=== PATIENT | female | born 1960 | race Caucasian/White ===

== ENCOUNTER 2017-01-05 10:05 | Inpatient (IN) | payer MEDICAID, OTHER ==
--- NOTE | 2017-01-05 10:29 | ERNOTE ---
Dyspnea - General Presenting Symptoms: shortness of breath Time Seen by Provider: 01/05/17 10:08 Source: patient Exam Limitations: no limitations - Immun/Allergies/Home Medications Immunizations: IMMUNIZATION HX Immunizations Up to Date No History of Influenza Vaccine More Information Required Hx Pneumococcal Vaccination More Information Required Allergies/Adverse Reactions: Allergies penicillin G Allergy (Mild, Verified 01/05/17 14:13) rash Home Medications: HOME MEDICATIONS Albuterol Sulfate/Ipratropium [Duoneb 2.5-0.5MG/3ML Soln] 3 ml IH Q4H PRN [Last Taken Unknown] FLUoxetine HCL [Prozac] 40 mg PO DAILY 01/24/14 [Last Taken Unknown] Furosemide [Lasix] 80 mg PO DAILY 01/24/14 [Last Taken Unknown] Gabapentin 300 mg PO TID 01/24/14 [Last Taken Unknown] Lisinopril [Zestril] 2.5 mg PO DAILY 01/24/14 [Last Taken Unknown] Metoclopramide HCl [Reglan] 10 mg PO TID 01/24/14 [Last Taken Unknown] lamoTRIgine [Lamictal] 150 mg PO DAILY 01/24/14 [Last Taken Unknown] Acetaminophen [Tylenol] 650 mg PO BID 07/08/14 [Last Taken Unknown] Cholecalciferol (Vitamin D3) [Vitamin D3] 2,000 unit PO DAILY 07/08/14 [Last Taken 07/08/14] Cyanocobalamin [Vitamin B-12] 500 mcg PO DAILY 07/08/14 [Last Taken Unknown] Multivitamin [Multi-Vitamin Daily] 1 each PO DAILY 07/08/14 [Last Taken Unknown] Nystatin [Nystop] 1 appl TP QID 07/08/14 [Last Taken Unknown] Polyethylene Glycol 3350 [Miralax] 17 gm PO DAILY PRN 07/08/14 [Last Taken Unknown] buPROPion HCL [Wellbutrin Sr, Zyban] 150 mg PO BID 07/10/14 [Last Taken Unknown] Azithromycin [Zithromax] 250 mg PO DAILY #5 tablet 07/18/14 [Last Taken Unknown] Clobetasol Propionate [Temovate Emollient 0.05%] 1 appl TP BID #1 tube 07/18/14 [Last Taken Unknown] Levothyroxine Sodium [Synthroid] 150 mcg PO DAILY@0700 #30 tablet 07/18/14 [ Last Taken Unknown] Albuterol Sulfate/Ipratropium [Duoneb 2.5-0.5MG/3ML Soln] 3 ml IH QID 01/05/17 [ Last Taken Unknown] Ibuprofen [Motrin] 600 mg PO TID PRN 01/05/17 [Last Taken Unknown] Montelukast Sodium [Singulair] 10 mg PO DAILY 01/05/17 [Last Taken Unknown] Ranitidine HCl [Zantac] 300 mg PO DAILY 01/05/17 [Last Taken Unknown] - History of Present Illness Narrative: Patient has had increasing abdominal and leg swelling as well as shortness of breath over the last two weeks. She can barely make it from the living room to the kitchen as she gets so short of breath. This morning she was so weak that she had difficulty getting out of bed and eventually slid down and fell on her knees. She denies hitting her head, no other pain except the knees She has a history of COPD and CHF, 3liters of home O2, has home health come to her daily. It has been a while since she has had a CHF exacerbation, usually retains her fluid mainly in her abdomen Treatment [employer]: oxygen Initiating event: Denies: out of meds Frequency of episodes: Reports: occassional episodes Modifying Factors - (Improves): Reports: rest Modifying Factors (Worsens): Reports: activity Associated Symptoms-Dyspnea: Reports: denies symptoms, weakness. Denies: fever/ chills, sweating, chest pain/discomfort, palpitations, cough, wheezing Prior Treatment: Denies: recently seen, currently on antibiotics Review of Systems - Review of Systems Constitutional: Present: weakness - generalized. Absent: recent illness ENT: Absent: nose congestion, sore throat Respiratory: Present: shortness of breath. Absent: cough Cardiology: Absent: chest pain Gastrointestinal/Abdominal: Absent: nausea, vomiting, abdominal pain Genitourinary: Present: no symptoms reported Musculoskeletal: Present: See HPI Skin: Absent: rash - Patient's Past Medical History Patient History - Medical: Anemia, Chronic Pain, Diabetes Type 2 Insulin Dependent, Depression, Fibromyalgia, Hypothyroidism, Osteoarthritis Patient History - Cardiac/Respiratory: CHF, COPD Patient History - Surgical Procedures: - Social History Living Situations: home Does anyone smoke in the home?: No Smoking Status: Never smoker Alcohol Use: none Drug Use: none - Immunizations Immunizations Up to Date: No Hx Pneumococcal Vaccination: More Information Required to Determine History of Influenza Vaccine: More Information Required to Determine Physical Exam - Physical Exam General Appearance: Present: wd/wn, alert, no apparent distress, obese Head Exam: Present: normal inspection Ears, Nose, Throat: Present: normal pharynx Respiratory: Present: no respiratory distress, normal breath sounds, no accessory muscle use, crackles - on both bases Cardiovascular/Chest: Present: regular rate, rhythm, no murmur Gastrointestinal/Abdominal: Present: soft, other - large obese abdomen, significant fluid retention in lower abdomen with skin induration, no erythema, no significant tenderness Extremity Exam: Present: normal except - - echymosis over left patellar, pain on ROM exam, limited exam due to body habitus, pedal edema - +1, red lesion on left park: sharply demarkated (per home health nurse has been like this for years) Neurological Exam: Present: alert, oriented, normal mood/affect, no motor/ sensory deficits Skin Exam: Present: normal color, warm/dry ED Progress - Results and Orders Patient's Lab Results:: I have reviewed the patient's lab results. - Vital Signs Patient's Vital Signs:: I have reviewed the patient's vital signs. Vital Signs: Vital Signs 01/05/17 10:07 Temperature 36.7 C Pulse Rate 87 Respiratory 12 Rate Blood Pressure 133/72 O2 Sat by Pulse 85 L Oximetry - EKG EKG: NSR, RBBB - incomplete, other - T wave inversion inferior lead, first degree AV block EKG read: Interp. by me - X-Ray X-Ray #1 X-Ray: chest - cardiomegalie, increased vascular markings Interpretation: Reviewed by me X-Ray #2 X-Ray: knee - left: no acute findings, limited exam due to body habitus Interpretation: Reviewed by me X-Ray #3 X-Ray: knee - right:no acute findings, limited exam due to body habitus Interpretation: Reviewed by me - Progress/Reassessment Chief Complaint: Fall Progress Note-Subjective: 01/05/17 11:15 reviewed labs, PH normal, pCO2 at baseline compared to prior 01/05/17 12:01 es 09/20/17 12:01 discussed with Departure Clinical Impression: Acute exacerbation of CHF (congestive heart failure) Qualifiers: Congestive heart failure type: unspecified congestive heart failure type Qualified Code(s): I50.9 - Heart failure, unspecified - Departure Disposition: [facility] Condition: Stable
[2017-01-05 10:37] LABS: Hematocrit 39.9 % (37.0-47.0); Mean Cell Volume 90.7 fl (78-100); Mean Corpuscular Hemoglobin 27.3 pg (27-31); Mean Corpuscular Hgb Conc 30.1 g/dl (32-36); Mean Platelet Volume 8.7 fl (6.0-9.5); Platelet Count 194 K/mm3 (150-450); Red Cell Distribution Width 16.9 % (11.5-14.0); White Blood Count 6.8 K/mm3 (4.0-10.5)
[2017-01-05 11:20] LABS: Albumin * 2.6 gm/dl (3.4-5.0); Anion Gap 5.2 mmol/L (6.8-13.8); BUN/Creatinine Ratio 12.1 (9.0-21.6); Bilirubin, Total 0.5 mg/dL (0.0-1.1); Ca. Corrected For Albumin 9.1 mg/dL (8.4-10.2); Calcium * 8.3 mg/dL (7.9-10.9); Potassium 5.2 mmol/L (3.4-4.6); Total Protein 6.5 gm/dL (6.2-8.2); Troponin I 0.025 ng/ml (0.00-0.10)
[2017-01-05] MEDS ORDERED: CYCLOBENZAPRINE HCL 10 MG TABLET PO ONE (11:52)
[2017-01-05] MEDS ORDERED: oxyCODONE HCL/ACETAMINOPHEN 1 TAB TABLET PO ONE (11:52)
[2017-01-05] MEDS ORDERED: FUROSEMIDE 10 MG/ML VIAL IV ONE ×2 (12:01→17:00)
[2017-01-05] MEDS ORDERED: FUROSEMIDE 10 MG/ML VIAL ONE (12:26)
[2017-01-05] MEDS ORDERED: FLU VACC QS2017-18(6MOS UP)/PF 60 MCG/0.5 ML SYRINGE IM ONE (13:16)
--- NOTE | 2017-01-05 15:13 | HP ---
<Kristin Lozano - Last Filed: 01/06/17 06:59> Chief Complaint - Chief Complaint Date of Service: 01/05/17 Time of Service: 15:13 Chief Complaint: weakness, shortness of breath History of Present Illness: Stephanie is a 56 year old female patient with a PMH of diastolic CHF, COPD ( chronically on 3L O2 at all times), DM, HTN, HLD, hypothyroidism and morbid obesity who presented to the ER via EMS for severe weakness, fatigue and dyspnea. Patient states that she has gained a significant amount of "water weight" that she is unable to get out of bed and feels like stomach is bloated. Patient has history of diastolic CHF with significant diuresis after given IV diuretics in the hospital. Patient slide out of bed prior to coming into the hospital, fell and hit bilat knees. ER eval showed normal wbc and neutrophils. K+ 5.2, cr 0.91, blood gas with CO2 at 75.9 but ph 7.38, CO2 44 on bmp, cr 0.91, bnp 1418. cxr showed findings c/w vascular congestion and stable large cardiomegaly. patient desaturated to 87% on 3L with tachypnea in the ER and needed additional oxygen supplementation. Patient to be admitted for CHF exac, acute on chronic respiratory failure, weakness and fatigue. - Patient's Past Medical History Patient History - Medical: Anemia, Chronic Pain, Diabetes Type 2 Insulin Dependent, Depression, Fibromyalgia, Hypothyroidism, Osteoarthritis Patient History - Cardiac/Respiratory: CHF, COPD Patient History - Surgical Procedures: Patient History - Other: None LMP (females 10-50): Menopausal - Social History Living Situations: home Abuse History: No History of abuse Psych History: No pertinent hx Does anyone smoke in the home?: No Smoking Status: Former smoker Have you smoked in the past 12 months: No Alcohol Use: none Drug Use: none - Immunizations Immunizations Up to Date: No Hx Pneumococcal Vaccination: More Information Required to Determine History of Influenza Vaccine: More Information Required to Determine Review Of Systems (GEN) - Review of Systems Generalized/Overall Review: Present: Weakness, Malaise, Fatigue. Absent: Chills , Fever EENTM: Present: No Symptoms Reported Respiratory: Present: Cough, Shortness of Breath. Absent: Wheezing Cardiac: Present: Edema. Absent: Chest Pain, Palpitations, Syncope Abdominal: Present: Other - abdominal bloating. Absent: Nausea, Vomiting, Hematemesis Genitourinary: Present: No Symptoms Reported Musculoskeletal: Present: No Symptoms Reported Neurological: Present: No Symptoms Reported Skin: Present: Rash - left lower lateral leg - chronic. Endocrine: Present: No Symptoms Reported Misc: All systems neg except as marked Allergies/Adverse Reactions: Allergies Allergy/AdvReac Type Severity Reaction Status Date / Time penicillin G Allergy Mild rash Verified 01/05/17 14:13 Home Medications: HOME MEDICATIONS Albuterol Sulfate/Ipratropium [Duoneb 2.5-0.5MG/3ML Soln] 3 ml IH Q4H PRN [Last Taken Unknown] FLUoxetine HCL [Prozac] 40 mg PO DAILY 01/24/14 [Last Taken Unknown] Furosemide [Lasix] 80 mg PO DAILY 01/24/14 [Last Taken Unknown] Gabapentin 300 mg PO TID 01/24/14 [Last Taken Unknown] Lisinopril [Zestril] 2.5 mg PO DAILY 01/24/14 [Last Taken Unknown] Metoclopramide HCl [Reglan] 10 mg PO TID 01/24/14 [Last Taken Unknown] lamoTRIgine [Lamictal] 150 mg PO DAILY 01/24/14 [Last Taken Unknown] Acetaminophen [Tylenol] 650 mg PO BID 07/08/14 [Last Taken Unknown] Cholecalciferol (Vitamin D3) [Vitamin D3] 2,000 unit PO DAILY 07/08/14 [Last Taken 07/08/14] Cyanocobalamin [Vitamin B-12] 500 mcg PO DAILY 07/08/14 [Last Taken Unknown] Multivitamin [Multi-Vitamin Daily] 1 each PO DAILY 07/08/14 [Last Taken Unknown] Nystatin [Nystop] 1 appl TP QID 07/08/14 [Last Taken Unknown] Polyethylene Glycol 3350 [Miralax] 17 gm PO DAILY PRN 07/08/14 [Last Taken Unknown] buPROPion HCL [Wellbutrin Sr, Zyban] 150 mg PO BID 07/10/14 [Last Taken Unknown] Clobetasol Propionate [Temovate Emollient 0.05%] 1 appl TP BID #1 tube 07/18/14 [Last Taken Unknown] Levothyroxine Sodium [Synthroid] 150 mcg PO DAILY@0700 #30 tablet 07/18/14 [ Last Taken Unknown] Azithromycin 250 mg PO MOWEFR 01/05/17 [Last Taken Unknown] Codeine Phosphate/Guaifenesin [Guaifen-Codeine 200-20 mg/10Ml] 10 ml PO Q4H PRN 01/05/17 [Last Taken Unknown] Ibuprofen [Motrin] 800 mg PO TID PRN 01/05/17 [Last Taken Unknown] Insul NPH Hu Rec/Ins Rg Hu Rec [Novolin 70/30] See Protocol SQ 0700 01/05/17 [ Last Taken Unknown] Montelukast Sodium [Singulair] 10 mg PO DAILY 01/05/17 [Last Taken Unknown] Ranitidine HCl [Zantac] 300 mg PO DAILY 01/05/17 [Last Taken Unknown] Exam - Exam Vital Signs: Vital Signs - Last Taken Temp 36.9 C 01/05/17 14:50 Pulse 91 01/05/17 14:50 Resp 22 H 01/05/17 14:50 BP 117/75 01/05/17 14:50 Pulse Ox 94 01/05/17 14:50 Constitutional: Present: Alert, Oriented x3, Cooperative, No distress, Morbidly obese, Looks Older than stated age ENT Exam: Present: hearing grossly normal Eye Exam: bilateral eye: normal inspection Neck: Present: non-tender, supple Breasts: Present: Exam deferred Respiratory: Present: no accessory muscle use, crackles, No wheezing, other - tachypnea Cardiovascular/Chest: Present: regular rate, rhythm, no chest tenderness, JVD, edema - 3+ bilat lower extremity edema. Absent: tachycardia Peripheral Pulses: carotid (R): 2+, carotid (L): 2+, radial (R): 2+, radial (L) : 2+ Abdomen: Present: nontender, obese /Rectal: Present: Exam deferred Extremity: Present: lower extremity edema - 3+ bilat, other - left lower leg has large lateral red plaque present - patient indicates that this is a chronic skin condition. Skin Exam: Present: warm/dry, cool/dry, pallor Diagnostic Studies: Laboratory Results WBC 6.8 K/mm3 (4.0-10.5) 01/05/17 10:32 RBC 4.40 M/mm3 (4.2-5.4) 01/05/17 10:32 Hgb 12.0 gm/dL (12.5-16.0) L 01/05/17 10:32 Hct 39.9 % (37.0-47.0) 01/05/17 10:32 MCV 90.7 fl (78-100) 01/05/17 10:32 MCH 27.3 pg (27-31) 01/05/17 10:32 MCHC 30.1 g/dl (32-36) L 01/05/17 10:32 RDW 16.9 % (11.5-14.0) H 01/05/17 10:32 Plt Count 194 K/mm3 (150-450) 01/05/17 10:32 MPV 8.7 fl (6.0-9.5) 01/05/17 10:32 Immature Gran % (Auto) 0.60 % (0.001-0.429) H 01/05/17 10:32 Immature Gran # (Auto) 0.04 K/mm3 (0.000-0.0310) H 01/05/17 10:32 Neutrophils % 73.0 % (42-75.0) 01/05/17 10:32 Lymphocytes % 11.5 % (20-51) L 01/05/17 10:32 Monocytes % 12.3 % (0.0-9) H 01/05/17 10:32 Eosinophils % 2.3 % (0.0-3.0) 01/05/17 10:32 Basophils % 0.3 % (0.0-1.0) 01/05/17 10:32 Nucleated RBC % 0.0 k/mm3 (0-1) 01/05/17 10:32 Neutrophils # 5.0 K/mm3 (1.3-6.0) 01/05/17 10:32 Lymphocytes # 0.8 k/mm3 (1.5-3.5) L 01/05/17 10:32 Monocytes # 0.8 k/mm3 (0.0-1.0) 01/05/17 10:32 Eosinophils # 0.2 k/mm3 (0.0-0.7) 01/05/17 10:32 Absolute Basophils 0.0 k/mm3 (0.0-0.1) 01/05/17 10:32 pCO2 75.9 mmHg (32.0-45.0) H* 01/05/17 10:55 pO2 89.5 mmHg (83.0-108.0) 01/05/17 10:55 HCO3 43.4 mmol/L (21.0-28.0) H 01/05/17 10:55 Total CO2 45.7 mmol/L (19.0-24.0) H 01/05/17 10:55 Base Excess 14.7 mmol/L (-2.0-3.0) H 01/05/17 10:55 ABG pH 7.38 (7.35-7.45) 01/05/17 10:55 ABG O2 Sat (Measured) 96.2 % (94.0-98.0) 01/05/17 10:55 Sodium 137 mmol/L (132-142) 01/05/17 10:32 Plasma Sodium 138 mmol/L (130-142) 01/05/17 10:32 Potassium 5.2 mmol/L (3.4-4.6) H 01/05/17 10:32 Chloride 93 mmol/L (97-106) L 01/05/17 10:32 Carbon Dioxide 44.0 mmol/L (24-32.6) H 01/05/17 10:32 Anion Gap 5.2 mmol/L (6.8-13.8) L 01/05/17 10:32 BUN 11 mg/dL (3-23) 01/05/17 10:32 Creatinine 0.91 mg/dL (0.4-1.4) 01/05/17 10:32 Est GFR (Non-Af Amer) 67 mL/min (60-130) D 01/05/17 10:32 BUN/Creatinine Ratio 12.1 (9.0-21.6) 01/05/17 10:32 Random Glucose 139 mg/dL (70-110) H 01/05/17 10:32 Calcium 8.3 mg/dL (7.9-10.9) 01/05/17 10:32 Calcium Adj for Albumin 9.1 mg/dL (8.4-10.2) 01/05/17 10:32 Total Bilirubin 0.5 mg/dL (0.0-1.1) 01/05/17 10:32 AST 17 U/L (0-48) 01/05/17 10:32 ALT 22 U/L (19-67) 01/05/17 10:32 Alkaline Phosphatase 83 U/L (50-170) 01/05/17 10:32 Troponin I 0.025 ng/ml (0.00-0.10) 01/05/17 10:32 B-Natriuretic Peptide 1418 pg/mL (5-205) H 01/05/17 10:32 Total Protein 6.5 gm/dL (6.2-8.2) 01/05/17 10:32 Albumin 2.6 gm/dl (3.4-5.0) L 01/05/17 10:32 Assessment/Plan - Narrative Narrative: 56 year old female admitted with a CHF exac, acute on chronic respiratory failure with hypoxia and hypercapnia, weakness and fatigue. will check TSH and UA given weakness. lower extremities have a mild erythema to them that does not appears to be venous stasis, other options would be possible early cellulitis - however wbc/neutrophils are not elevated. will recheck labs in the am and watch patient closely. also check esr, crp and procalcitonin. For chf exac, patient was given 60 mg iv lasix in the er with approx 1000 diuresis afterwards. will order additional diuretics (60 mg iv lasix, 2.5 mg po zarolyxn and 100 mg spironlactone) 6 hours after the initial lasix dose. again , recheck labs in the am. daily weights and strict I&Os. chf teaching. hold off on an echo as they have proven to be extremely technically difficult in the past with little information gained as the patient does not tolerate them. wean O2 back to baseline when able. consult PT/OT for weakness and fatigue. - Assessment/Plan (1) CHF (congestive heart failure) Problem: Acute QualifierTitle: Congestive heart failure type: diastolic Congestive heart failure chronicity: acute on chronic Qualified Code(s): I50.33 - Acute on chronic diastolic (congestive) heart failure (2) Acute respiratory failure Problem: Acute QualifierTitle: Respiratory failure complication: hypoxia and hypercapnia Qualified Code(s): J96.01 - Acute respiratory failure with hypoxia; J96.02 - Acute respiratory failure with hypercapnia (3) Diabetes 1.5, managed as type 1 Problem: Chronic (4) Hyperlipidemia Problem: Chronic QualifierTitle: Hyperlipidemia type: unspecified Qualified Code(s): E78.5 - Hyperlipidemia, unspecified (5) Hypertension Problem: Chronic QualifierTitle: Hypertension type: essential hypertension Qualified Code( s): I10 - Essential (primary) hypertension (6) Hypothyroidism Problem: Chronic QualifierTitle: Hypothyroidism type: acquired Qualified Code(s): E03.9 - Hypothyroidism, unspecified (7) Morbid obesity Problem: Chronic (8) Obstructive sleep apnea Problem: Chronic (9) Pickwickian syndrome Problem: Chronic (10) Weakness generalized Problem: Acute (11) Fatigue Problem: Acute QualifierTitle: Fatigue type: unspecified Qualified Code(s): R53.83 - Other fatigue <Leo Adamson - Last Filed: 01/06/17 09:56> History of Present Illness: Diuresing well. I directly supervised all of our nurse practitioner hospitalist care for this patient. Immunizations: IMMUNIZATION HX Immunizations Up to Date No History of Influenza Vaccine More Information Required Hx Pneumococcal Vaccination More Information Required Exam - Exam Vital Signs: Vital Signs - Last Taken Temp 36.7 C 01/06/17 08:19 Pulse 79 01/06/17 09:35 Resp 20 01/06/17 08:19 BP 116/70 01/06/17 09:35 Pulse Ox 100 01/06/17 08:19 Diagnostic Studies: Abnormal Lab Results 01/05/17 01/05/17 01/05/17 Range/Units 15:26 15:30 15:30 Hgb (12.5-16.0) gm/dL MCHC (32-36) g/dl RDW (11.5-14.0) % Lymphocytes % (20-51) % Monocytes % (0.0-9) % Lymphocytes # (1.5-3.5) k/mm3 ESR 35 H (0-15) mm/hr Chloride (97-106) mmol/L Carbon Dioxide (24-32.6) mmol/L Anion Gap (6.8-13.8) mmol/L Random Glucose (70-110) mg/dL C-Reactive Prot, Quant 2.8 H (0.0-0.9) mg/dL Procalcitonin Less than 0.05 L (0.05-0.50) ng/mL Urine Blood (NEGATIVE) /ul Urine RBC (0-5) /hpf Urine Bacteria (NONE) Hyaline Casts (NONE) /LPF 01/05/17 01/06/17 01/06/17 Range/Units 17:00 06:07 06:26 Hgb 11.9 L (12.5-16.0) gm/dL MCHC 29.5 L (32-36) g/dl RDW 17.0 H (11.5-14.0) % Lymphocytes % 10.1 L (20-51) % Monocytes % 12.0 H (0.0-9) % Lymphocytes # 0.6 L (1.5-3.5) k/mm3 ESR (0-15) mm/hr Chloride 91 L (97-106) mmol/L Carbon Dioxide 53.9 H (24-32.6) mmol/L Anion Gap 1.8 L (6.8-13.8) mmol/L Random Glucose 220 H D (70-110) mg/dL C-Reactive Prot, Quant (0.0-0.9) mg/dL Procalcitonin (0.05-0.50) ng/mL Urine Blood 250 H (NEGATIVE) /ul Urine RBC 10-25 H (0-5) /hpf Urine Bacteria 1+ H (NONE) Hyaline Casts 0-5 H (NONE) /LPF Microbiology 01/05/17 17:00 Urine Culture - Preliminary Urine,Catheterized No Growth Laboratory Results WBC 5.8 K/mm3 (4.0-10.5) 01/06/17 06:26 RBC 4.41 M/mm3 (4.2-5.4) 01/06/17 06:26 Hgb 11.9 gm/dL (12.5-16.0) L 01/06/17 06:26 Hct 40.4 % (37.0-47.0) 01/06/17 06:26 MCV 91.6 fl (78-100) 01/06/17 06:26 MCH 27.0 pg (27-31) 01/06/17 06:26 MCHC 29.5 g/dl (32-36) L 01/06/17 06:26 RDW 17.0 % (11.5-14.0) H 01/06/17 06:26 Plt Count 170 K/mm3 (150-450) 01/06/17 06:26 MPV 9.4 fl (6.0-9.5) 01/06/17 06:26 Immature Gran % (Auto) 0.30 % (0.001-0.429) 01/06/17 06:26 Immature Gran # (Auto) 0.02 K/mm3 (0.000-0.0310) 01/06/17 06:26 Neutrophils % 74.9 % (42-75.0) 01/06/17 06:26 Lymphocytes % 10.1 % (20-51) L 01/06/17 06:26 Monocytes % 12.0 % (0.0-9) H 01/06/17 06:26 Eosinophils % 2.2 % (0.0-3.0) 01/06/17 06:26 Basophils % 0.5 % (0.0-1.0) 01/06/17 06:26 Nucleated RBC % 0.0 k/mm3 (0-1) 01/06/17 06:26 Neutrophils # 4.4 K/mm3 (1.3-6.0) 01/06/17 06:26 Lymphocytes # 0.6 k/mm3 (1.5-3.5) L 01/06/17 06:26 Monocytes # 0.7 k/mm3 (0.0-1.0) 01/06/17 06:26 Eosinophils # 0.1 k/mm3 (0.0-0.7) 01/06/17 06:26 Absolute Basophils 0.0 k/mm3 (0.0-0.1) 01/06/17 06:26 ESR 35 mm/hr (0-15) H 01/05/17 15:30 pCO2 75.9 mmHg (32.0-45.0) H* 01/05/17 10:55 pO2 89.5 mmHg (83.0-108.0) 01/05/17 10:55 HCO3 43.4 mmol/L (21.0-28.0) H 01/05/17 10:55 Total CO2 45.7 mmol/L (19.0-24.0) H 01/05/17 10:55 Base Excess 14.7 mmol/L (-2.0-3.0) H 01/05/17 10:55 ABG pH 7.38 (7.35-7.45) 01/05/17 10:55 ABG O2 Sat (Measured) 96.2 % (94.0-98.0) 01/05/17 10:55 Sodium 136 mmol/L (132-142) 01/06/17 06:07 Plasma Sodium 138 mmol/L (130-142) 01/06/17 06:07 Potassium 3.8 mmol/L (3.4-4.6) D 01/06/17 06:07 Chloride 91 mmol/L (97-106) L 01/06/17 06:07 Carbon Dioxide 53.9 mmol/L (24-32.6) H 01/06/17 06:07 Anion Gap 1.8 mmol/L (6.8-13.8) L 01/06/17 06:07 BUN 10 mg/dL (3-23) 01/06/17 06:07 Creatinine 0.95 mg/dL (0.4-1.4) 01/06/17 06:07 Est GFR (Non-Af Amer) 64 mL/min (60-130) 01/06/17 06:07 BUN/Creatinine Ratio 10.5 (9.0-21.6) 01/06/17 06:07 Random Glucose 220 mg/dL (70-110) H D 01/06/17 06:07 Calcium 8.4 mg/dL (7.9-10.9) 01/06/17 06:07 Calcium Adj for Albumin 9.1 mg/dL (8.4-10.2) 01/05/17 10:32 Total Bilirubin 0.5 mg/dL (0.0-1.1) 01/05/17 10:32 AST 17 U/L (0-48) 01/05/17 10:32 ALT 22 U/L (19-67) 01/05/17 10:32 Alkaline Phosphatase 83 U/L (50-170) 01/05/17 10:32 Troponin I 0.025 ng/ml (0.00-0.10) 01/05/17 10:32 C-Reactive Prot, Quant 2.8 mg/dL (0.0-0.9) H 01/05/17 15:26 B-Natriuretic Peptide 1418 pg/mL (5-205) H 01/05/17 10:32 Total Protein 6.5 gm/dL (6.2-8.2) 01/05/17 10:32 Albumin 2.6 gm/dl (3.4-5.0) L 01/05/17 10:32 Procalcitonin Less than 0.05 ng/mL (0.05-0.50) L 01/05/17 15:30 TSH 3.543 uIU/mL (0.358-3.74) 01/05/17 15:26 Urine Color Yellow 01/05/17 17:00 Urine Appearance Cloudy 01/05/17 17:00 Urine pH 5.5 pH (5.0-7.0) 01/05/17 17:00 Ur Specific [place] 1.020 SP.GR. (1.005-1.010) 01/05/17 17:00 Urine Protein Negative mg/dL (NEGATIVE) 01/05/17 17:00 Urine Glucose (UA) Negative mg/dL (NEGATIVE) 01/05/17 17:00 Urine Ketones Negative mg/dL (NEGATIVE) 01/05/17 17:00 Urine Blood 250 /ul (NEGATIVE) H 01/05/17 17:00 Urine Nitrate Negative (NEGATIVE) 01/05/17 17:00 Urine Bilirubin Negative mg/dl (NEGATIVE) 01/05/17 17:00 Urine Urobilinogen Normal EU/dl (NORMAL) 01/05/17 17:00 Ur Leukocyte Esterase Negative /ul (NEGATIVE) 01/05/17 17:00 Urine RBC 10-25 /hpf (0-5) H 01/05/17 17:00 Urine WBC 0-5 /hpf (0-5) 01/05/17 17:00 Ur Epithelial Cells 0-5 /hpf (0-5) 01/05/17 17:00 Urine Bacteria 1+ (NONE) H 01/05/17 17:00 Hyaline Casts 0-5 /LPF (NONE) H 01/05/17 17:00 Urine Culture Comments Culture to follow 01/05/17 17:00
[2017-01-05 15:57] LABS: CRP 2.8 mg/dL (0.0-0.9); TSH * 3.543 uIU/mL (0.358-3.74)
[2017-01-05] MEDS: NYSTATIN 15 APPL BTL TP SCH ×2 (16:40→20:29)
[2017-01-05] MEDS: ENOXAPARIN SODIUM 40 MG/0.4 ML SYRG SC SCH (16:40)
[2017-01-05] MEDS: METOCLOPRAMIDE HCL 10 MG TABLET PO SCH (16:41)
[2017-01-05] MEDS ORDERED: SPIRONOLACTONE 100 MG TABLET PO ONE (17:00)
[2017-01-05] MEDS ORDERED: METOLAZONE 5 MG TABLET PO ONE (17:00)
[2017-01-05 17:08] LABS: Urine Bilirubin Negative (NEGATIVE); Urine Blood 250 /ul (NEGATIVE); Urine Ketone Negative (NEGATIVE); Urine Nitrite Negative (NEGATIVE); Urine Protein Negative (NEGATIVE); Urine Urobilinogen Normal (NORMAL); Urine pH 5.5 pH (5.0-7.0)
[2017-01-05 17:41] LABS: Urine Appearance Cloudy; Urine Color Yellow
[2017-01-05 17:42] LABS: Urine Bacteria 1+; Urine Hyaline Cast 0-5 /LPF; Urine WBC 0-5 /hpf (0-5)
[2017-01-05] MEDS: ALBUTEROL SULFATE/IPRATROPIUM 3 ML NEBU IH SCH (18:22)
[2017-01-05] MEDS: ACETAMINOPHEN 325 MG TABLET PO SCH (20:25)
[2017-01-05] MEDS: GABAPENTIN 300 MG CAPSULE PO SCH (20:25)
[2017-01-05] MEDS: MONTELUKAST SODIUM 10 MG TABLET PO SCH (20:25)
[2017-01-05] MEDS: buPROPion HCL 150 MG TABLET.SA PO SCH (20:26)
[2017-01-05] MEDS: CLOBETASOL PROPIONATE 15 APPL TUBE TP SCH (20:29)
[2017-01-06 06:28] LABS: Hematocrit 40.4 % (37.0-47.0); Hemoglobin 11.9 gm/dL (12.5-16.0); Mean Cell Volume 91.6 fl (78-100); Mean Corpuscular Hgb Conc 29.5 g/dl (32-36); Mean Platelet Volume 9.4 fl (6.0-9.5); Neutrophil # 4.4 K/mm3 (1.3-6.0); Neutrophil % 74.9 % (42-75.0); Platelet Count 170 K/mm3 (150-450); Red Blood Count 4.41 M/mm3 (4.2-5.4); White Blood Count 5.8 K/mm3 (4.0-10.5)
[2017-01-06 06:30] LABS: Anion Gap 1.8 mmol/L (6.8-13.8); BUN/Creatinine Ratio 10.5 (9.0-21.6); Calcium * 8.4 mg/dL (7.9-10.9); Estimated Creat Clear 53.4; Potassium 3.8 mmol/L (3.4-4.6)
[2017-01-06] MEDS: ALBUTEROL SULFATE/IPRATROPIUM 3 ML NEBU IH SCH (06:51)
[2017-01-06 07:08] LABS: Carbon Dioxide 53.9 mmol/L (24-32.6)
[2017-01-06] MEDS ORDERED: ALBUTEROL SULFATE/IPRATROPIUM 3 ML NEBU IH PRN (07:35)
[2017-01-06] MEDS: LEVOTHYROXINE SODIUM 150 MCG TABLET PO SCH (07:43)
[2017-01-06] MEDS: GABAPENTIN 300 MG CAPSULE PO SCH ×3 (07:43→21:57)
[2017-01-06] MEDS ORDERED: FUROSEMIDE 10 MG/ML VIAL IV ONE (08:06)
--- NOTE | 2017-01-06 08:11 | PN ---
Subjective - Date and Time Seen Date: 01/06/17 Time: 08:07 Subjective Narrative: states belly still feels tight. c/o bladder spasms. still short of breath but improved. no decrease in weight. Objective - Review of Systems Generalized/Overall Review: Reports: Weakness, Malaise, Fatigue. Denies: Chills , Fever EENTM: Reports: No Symptoms Reported Respiratory: Reports: Cough, Shortness of Breath. Denies: Wheezing Cardiac: Reports: Edema. Denies: Chest Pain, Palpitations, Syncope Abdominal: Reports: No Symptoms Reported Genitourinary Symptoms: Reports: Other - bladder spasma Musculoskeletal Complaints: Reports: No Symptoms Reported Neurological: Reports: No Symptoms Reported Skin: Reports: Lesions Endocrine: Reports: No Symptoms Reported Misc: All systems neg except as marked - Vitals Vitals: Last Vital Signs Temp 36.6 C 01/06/17 02:00 Pulse 63 01/06/17 06:51 Resp 20 01/06/17 06:51 BP 100/55 01/06/17 02:00 Pulse Ox 96 01/06/17 06:51 - Abnormal Lab Findings Abnormal Lab Findings: Abnormal Lab Results 01/05/17 01/05/17 01/05/17 Range/Units 15:26 15:30 15:30 Hgb (12.5-16.0) gm/dL MCHC (32-36) g/dl RDW (11.5-14.0) % Lymphocytes % (20-51) % Monocytes % (0.0-9) % Lymphocytes # (1.5-3.5) k/mm3 ESR 35 H (0-15) mm/hr Chloride (97-106) mmol/L Carbon Dioxide (24-32.6) mmol/L Anion Gap (6.8-13.8) mmol/L Random Glucose (70-110) mg/dL C-Reactive Prot, Quant 2.8 H (0.0-0.9) mg/dL Procalcitonin Less than 0.05 L (0.05-0.50) ng/mL Urine Blood (NEGATIVE) /ul Urine RBC (0-5) /hpf Urine Bacteria (NONE) Hyaline Casts (NONE) /LPF 01/05/17 01/06/17 01/06/17 Range/Units 17:00 06:07 06:26 Hgb 11.9 L (12.5-16.0) gm/dL MCHC 29.5 L (32-36) g/dl RDW 17.0 H (11.5-14.0) % Lymphocytes % 10.1 L (20-51) % Monocytes % 12.0 H (0.0-9) % Lymphocytes # 0.6 L (1.5-3.5) k/mm3 ESR (0-15) mm/hr Chloride 91 L (97-106) mmol/L Carbon Dioxide 53.9 H (24-32.6) mmol/L Anion Gap 1.8 L (6.8-13.8) mmol/L Random Glucose 220 H D (70-110) mg/dL C-Reactive Prot, Quant (0.0-0.9) mg/dL Procalcitonin (0.05-0.50) ng/mL Urine Blood 250 H (NEGATIVE) /ul Urine RBC 10-25 H (0-5) /hpf Urine Bacteria 1+ H (NONE) Hyaline Casts 0-5 H (NONE) /LPF - Exam Constitutional: Present: Alert, Cooperative, No distress ENT Exam: Present: hearing grossly normal Neck: Present: non-tender, supple Breasts: Present: Exam deferred Respiratory: Present: chest non-tender, no accessory muscle use, crackles Cardiovascular/Chest: Present: regular rate, rhythm, JVD. Absent: tachycardia Abdomen: Present: soft, nontender, obese /Rectal: Present: Exam deferred Extremity: Present: pelvis stable, lower extremity edema - 3+ bilat Skin Exam: Present: no cyanosis, cool/dry, pallor Cauti Physician Documentation - Urinary Catheter Management Uretheral (Dominguez) Reason for Continuing Indwelling Catheter: Measure accurate output Date of Insertion: 01/05/17 Time of Insertion: 12:31 Assessment/Plan Plan Narrative: 56 year old female admitted with a CHF exac, acute on chronic respiratory failure with hypoxia and hypercapnia, weakness and fatigue. TSH checked and is wnl. UA suggestive of UTI but little bacteria present (+1) and with normal WBC and no fever will wait for urine culture to come back before treating unless patient clinically changes in the meantime. CHF exac, patient diuresis 3400 ml in the last 24 hours but no change in weight. will order 120 mg iv lasix this am. and watch urine output - likely need an additional dose this afternoon if bp tolerates. recheck labs in the am. daily weights and strict I&Os. chf teaching. hold off on an echo as they have proven to be extremely technically difficult in the past with little information gained as the patient does not tolerate them. wean O2 back to baseline when able. consult PT/OT for weakness and fatigue. consider checking chest xray in am. - Problems/Diagnosis (1) CHF (congestive heart failure) Problem: Acute Qualifiers: Congestive heart failure type: diastolic Congestive heart failure chronicity: acute on chronic Qualified Code(s): I50.33 - Acute on chronic diastolic (congestive) heart failure (2) Acute respiratory failure Problem: Acute Qualifiers: Respiratory failure complication: hypoxia and hypercapnia Qualified Code(s) : J96.01 - Acute respiratory failure with hypoxia; J96.02 - Acute respiratory failure with hypercapnia (3) Diabetes 1.5, managed as type 1 Problem: Chronic (4) Hyperlipidemia Problem: Chronic Qualifiers: Hyperlipidemia type: unspecified Qualified Code(s): E78.5 - Hyperlipidemia , unspecified (5) Hypertension Problem: Chronic Qualifiers: Hypertension type: essential hypertension Qualified Code(s): I10 - Essential (primary) hypertension (6) Hypothyroidism Problem: Chronic Qualifiers: Hypothyroidism type: acquired Qualified Code(s): E03.9 - Hypothyroidism, unspecified (7) Morbid obesity Problem: Chronic (8) Obstructive sleep apnea Problem: Chronic (9) Pickwickian syndrome Problem: Chronic (10) Weakness generalized Problem: Acute (11) Fatigue Problem: Acute Qualifiers: Fatigue type: unspecified Qualified Code(s): R53.83 - Other fatigue
[2017-01-06] MEDS ORDERED: FUROSEMIDE 100 MG, FUROSEMIDE 20 MG IV ONE ×2 (08:30)
[2017-01-06] MEDS ORDERED: AZITHROMYCIN 250 MG TABLET PO SCH (09:00)
[2017-01-06] MEDS ORDERED: INSUL NPH HU REC/INS RG HU REC 100 UNITS/ML VIAL SC SCH (09:00)
[2017-01-06] MEDS: FLUoxetine HCL 20 MG CAPSULE PO SCH (09:28)
[2017-01-06] MEDS: MULTIVITAMINS 1 CAP CAPSULE PO SCH (09:28)
[2017-01-06] MEDS: FAMOTIDINE 20 MG TABLET PO SCH (09:28)
[2017-01-06] MEDS: METOCLOPRAMIDE HCL 10 MG TABLET PO SCH ×3 (09:28→17:28)
[2017-01-06] MEDS: CLOBETASOL PROPIONATE 15 APPL TUBE TP SCH ×2 (09:28→21:57)
[2017-01-06] MEDS: lamoTRIgine 100 MG TABLET PO SCH (09:29)
[2017-01-06] MEDS: NYSTATIN 15 APPL BTL TP SCH ×4 (09:31→21:56)
[2017-01-06] MEDS: INSUL NPH HU REC/INS RG HU REC 100 UNITS/ML VIAL SC SCH (09:32)
[2017-01-06] MEDS: CHOLECALCIFEROL 1,000 UNIT CAPSULE PO SCH (09:33)
[2017-01-06] MEDS: ACETAMINOPHEN 325 MG TABLET PO SCH ×2 (09:33→21:58)
[2017-01-06] MEDS: buPROPion HCL 150 MG TABLET.SA PO SCH ×2 (09:34→21:59)
[2017-01-06] MEDS: CYANOCOBALAMIN 1,000 MCG TABLET PO SCH (09:35)
[2017-01-06] MEDS ORDERED: OXYBUTYNIN CHLORIDE 5 MG TABLET PO PRN (10:03)
[2017-01-06] MEDS: OXYBUTYNIN CHLORIDE 5 MG TABLET PO SCH ×3 (12:25→21:59)
[2017-01-06] MEDS: ENOXAPARIN SODIUM 40 MG/0.4 ML SYRG SC SCH (15:21)
[2017-01-06] MEDS: FUROSEMIDE 10 MG/ML VIAL IV SCH (21:56)
[2017-01-06] MEDS: MONTELUKAST SODIUM 10 MG TABLET PO SCH (21:57)
[2017-01-07] MEDS: OXYBUTYNIN CHLORIDE 5 MG TABLET PO SCH ×4 (03:36→22:26)
[2017-01-07 06:05] LABS: Hematocrit 39.1 % (37.0-47.0); Hemoglobin 11.6 gm/dL (12.5-16.0); Mean Cell Volume 91.4 fl (78-100); Mean Corpuscular Hemoglobin 27.1 pg (27-31); Mean Corpuscular Hgb Conc 29.7 g/dl (32-36); Mean Platelet Volume 9.1 fl (6.0-9.5); Neutrophil # 4.2 K/mm3 (1.3-6.0); Neutrophil % 70.3 % (42-75.0); Platelet Count 164 K/mm3 (150-450); Red Blood Count 4.28 M/mm3 (4.2-5.4); Red Cell Distribution Width 16.6 % (11.5-14.0); White Blood Count 5.9 K/mm3 (4.0-10.5)
[2017-01-07 06:21] LABS: BUN/Creatinine Ratio 11.3 (9.0-21.6); Blood Urea Nitrogen 11 mg/dL (3-23); Calcium * 8.5 mg/dL (7.9-10.9); Chloride 88 mmol/L (97-106); Estimated Creat Clear 52.3; Glucose * 203 mg/dL (70-110); Potassium 3.6 mmol/L (3.4-4.6); Sodium 135 mmol/L (132-142)
[2017-01-07 06:42] LABS: Carbon Dioxide 55.9 mmol/L (24-32.6)
[2017-01-07] MEDS: LEVOTHYROXINE SODIUM 150 MCG TABLET PO SCH (06:58)
[2017-01-07] MEDS: GABAPENTIN 300 MG CAPSULE PO SCH ×3 (06:58→20:40)
[2017-01-07] MEDS ORDERED: POTASSIUM CHLORIDE 20 MEQ TABLET.SA PO ONE (08:02)
[2017-01-07] MEDS: SPIRONOLACTONE 25 MG TABLET PO SCH ×2 (08:41→20:39)
[2017-01-07] MEDS: lamoTRIgine 100 MG TABLET PO SCH (08:42)
[2017-01-07] MEDS: FUROSEMIDE 10 MG/ML VIAL IV SCH ×2 (08:44→20:38)
[2017-01-07] MEDS: MULTIVITAMINS 1 CAP CAPSULE PO SCH (08:45)
[2017-01-07] MEDS: FAMOTIDINE 20 MG TABLET PO SCH (08:46)
[2017-01-07] MEDS: METOCLOPRAMIDE HCL 10 MG TABLET PO SCH ×3 (08:47→16:03)
[2017-01-07] MEDS: FLUoxetine HCL 20 MG CAPSULE PO SCH (08:47)
[2017-01-07] MEDS: ACETAMINOPHEN 325 MG TABLET PO SCH ×2 (08:49→20:39)
[2017-01-07] MEDS: CHOLECALCIFEROL 1,000 UNIT CAPSULE PO SCH (08:50)
[2017-01-07] MEDS: buPROPion HCL 150 MG TABLET.SA PO SCH ×2 (08:50→20:41)
[2017-01-07] MEDS: CYANOCOBALAMIN 1,000 MCG TABLET PO SCH (08:50)
[2017-01-07] MEDS: AZITHROMYCIN 250 MG TABLET PO SCH (08:51)
--- NOTE | 2017-01-07 08:53 | PN ---
<Kristin Lozano - Last Filed: 01/07/17 09:05> Subjective - Date and Time Seen Date: 01/07/17 Time: 08:49 Subjective Narrative: states belly still feeling tight. breathing improving. down 0.5 kg. i/o - 1890. Objective - Review of Systems Generalized/Overall Review: Reports: Weakness, Fatigue. Denies: Chills, Fever EENTM: Reports: No Symptoms Reported Respiratory: Reports: Shortness of Breath. Denies: Stridor, Wheezing Cardiac: Reports: Edema. Denies: Chest Pain, Syncope Abdominal: Reports: No Symptoms Reported Genitourinary Symptoms: Reports: No Symptoms Reported Musculoskeletal Complaints: Reports: No Symptoms Reported Neurological: Reports: No Symptoms Reported Skin: Reports: No Symptoms Reported Endocrine: Reports: No Symptoms Reported Misc: All systems neg except as marked - Vitals Vitals: Last Vital Signs Temp 37 C 01/07/17 08:03 Pulse 86 01/07/17 08:03 Resp 20 01/07/17 08:03 BP 102/76 01/07/17 08:03 Pulse Ox 92 01/07/17 08:03 - Abnormal Lab Findings Abnormal Lab Findings: Abnormal Lab Results 01/07/17 01/07/17 Range/Units 06:00 06:00 Hgb 11.6 L (12.5-16.0) gm/dL MCHC 29.7 L (32-36) g/dl RDW 16.6 H (11.5-14.0) % Lymphocytes % 11.7 L (20-51) % Monocytes % 14.5 H (0.0-9) % Lymphocytes # 0.7 L (1.5-3.5) k/mm3 Chloride 88 L (97-106) mmol/L Carbon Dioxide 55.9 H (24-32.6) mmol/L Anion Gap Less than 1.0 L (6.8-13.8) mmol/L Random Glucose 203 H (70-110) mg/dL - Exam Constitutional: Present: Alert, Cooperative, Morbidly obese, Looks Older than stated age ENT Exam: Present: hearing grossly normal Neck: Present: supple Breasts: Present: Exam deferred Respiratory: Present: no respiratory distress, no accessory muscle use, decreased breath sounds Cardiovascular/Chest: Present: normal peripheral pulses, regular rate, rhythm, no chest tenderness, edema - 2+ lower extremity edema. Absent: tachycardia Abdomen: Present: soft, nontender, obese /Rectal: Present: Exam deferred Extremity: Present: non-tender, no calf tenderness, lower extremity edema - 2+ lower extremity edema Cauti Physician Documentation - Urinary Catheter Management Uretheral (Dominguez) Urethral Indwelling: Yes Reason for Continuing Indwelling Catheter: Measure accurate output Date of Insertion: 01/05/17 Time of Insertion: 12:31 Assessment/Plan Plan Narrative: 56 year old female admitted with a CHF exac, acute on chronic respiratory failure with hypoxia and hypercapnia, weakness and fatigue. TSH checked and is wnl. UA suggestive of UTI but little bacteria present (+1) and with normal WBC and no fever, one dose of rocephin given. final urine culture showed no grown. CHF exac, patient diuresis 3650 ml in the last 24 hours with a decrease of 0.5 kg in weight. I?O -1890. lasix at 80 mg iv bid. recheck labs in the am. daily weights and strict I&Os. chf teaching. hold off on an echo as they have proven to be extremely technically difficult in the past with little information gained as the patient does not tolerate them. PT/OT for weakness and fatigue. pt is still significantly weak and is able to get out of bed with max assist and walk 1-2 steps. prior to this illness, patient was able to get out of bed by herself and walk around home, cook and take care of herself. pt needs to continue to stay in the hospital for continued diuresis and PT/OT. - Problems/Diagnosis (1) CHF (congestive heart failure) Problem: Acute QualifierTitle: Congestive heart failure type: diastolic Congestive heart failure chronicity: acute on chronic Qualified Code(s): I50.33 - Acute on chronic diastolic (congestive) heart failure (2) Acute respiratory failure Problem: Acute QualifierTitle: Respiratory failure complication: hypoxia and hypercapnia Qualified Code(s): J96.01 - Acute respiratory failure with hypoxia; J96.02 - Acute respiratory failure with hypercapnia (3) Diabetes 1.5, managed as type 1 Problem: Chronic (4) Hyperlipidemia Problem: Chronic QualifierTitle: Hyperlipidemia type: unspecified Qualified Code(s): E78.5 - Hyperlipidemia, unspecified (5) Hypertension Problem: Chronic QualifierTitle: Hypertension type: essential hypertension Qualified Code( s): I10 - Essential (primary) hypertension (6) Hypothyroidism Problem: Chronic QualifierTitle: Hypothyroidism type: acquired Qualified Code(s): E03.9 - Hypothyroidism, unspecified (7) Morbid obesity Problem: Chronic (8) Obstructive sleep apnea Problem: Chronic (9) Pickwickian syndrome Problem: Chronic (10) Weakness generalized Problem: Acute (11) Fatigue Problem: Acute QualifierTitle: Fatigue type: unspecified Qualified Code(s): R53.83 - Other fatigue <Leo Adamson - Last Filed: 01/07/17 19:53> Subjective Subjective Narrative: Patient feels somewhat better, but still quite weak. Will continue with the same plan. I personally guided all of our nurse practitioner hospitalist care for this patient. Objective - Vitals Vitals: Last Vital Signs Temp 36.7 C 01/07/17 19:41 Pulse 83 01/07/17 19:41 Resp 20 01/07/17 19:41 BP 114/74 01/07/17 19:41 Pulse Ox 95 01/07/17 19:41 - Abnormal Lab Findings Abnormal Lab Findings: Abnormal Lab Results 01/07/17 01/07/17 Range/Units 06:00 06:00 Hgb 11.6 L (12.5-16.0) gm/dL MCHC 29.7 L (32-36) g/dl RDW 16.6 H (11.5-14.0) % Lymphocytes % 11.7 L (20-51) % Monocytes % 14.5 H (0.0-9) % Lymphocytes # 0.7 L (1.5-3.5) k/mm3 Chloride 88 L (97-106) mmol/L Carbon Dioxide 55.9 H (24-32.6) mmol/L Anion Gap Less than 1.0 L (6.8-13.8) mmol/L Random Glucose 203 H (70-110) mg/dL
[2017-01-07] MEDS: NYSTATIN 15 APPL BTL TP SCH ×4 (09:01→20:40)
[2017-01-07] MEDS: CLOBETASOL PROPIONATE 15 APPL TUBE TP SCH ×2 (09:03→20:39)
[2017-01-07] MEDS: INSUL NPH HU REC/INS RG HU REC 100 UNITS/ML VIAL SC SCH (09:42)
[2017-01-07] MEDS: POLYETHYLENE GLYCOL 3350 119 GM BTL PO PRN (13:17)
[2017-01-07] MEDS: ENOXAPARIN SODIUM 40 MG/0.4 ML SYRG SC SCH (15:40)
[2017-01-07] MEDS: MONTELUKAST SODIUM 10 MG TABLET PO SCH (20:41)
[2017-01-08] MEDS: OXYBUTYNIN CHLORIDE 5 MG TABLET PO SCH ×4 (04:34→22:15)
[2017-01-08 05:39] LABS: Hematocrit 39.8 % (37.0-47.0); Hemoglobin 11.7 gm/dL (12.5-16.0); Mean Cell Volume 91.5 fl (78-100); Mean Corpuscular Hemoglobin 26.9 pg (27-31); Mean Corpuscular Hgb Conc 29.4 g/dl (32-36); Mean Platelet Volume 9.3 fl (6.0-9.5); Neutrophil # 4.5 K/mm3 (1.3-6.0); Platelet Count 164 K/mm3 (150-450); Red Blood Count 4.35 M/mm3 (4.2-5.4); Red Cell Distribution Width 16.2 % (11.5-14.0); White Blood Count 6.6 K/mm3 (4.0-10.5)
[2017-01-08 05:51] LABS: BUN/Creatinine Ratio 14.4 (9.0-21.6); Calcium * 8.6 mg/dL (7.9-10.9); Estimated Creat Clear 56.4; Potassium 3.6 mmol/L (3.4-4.6)
[2017-01-08 05:56] LABS: Anion Gap 1.9 mmol/L (6.8-13.8)
[2017-01-08 06:02] LABS: Carbon Dioxide 49.7 mmol/L (24-32.6)
[2017-01-08] MEDS: POLYETHYLENE GLYCOL 3350 119 GM BTL PO PRN (07:33)
[2017-01-08] MEDS: LEVOTHYROXINE SODIUM 150 MCG TABLET PO SCH (07:33)
[2017-01-08] MEDS: GABAPENTIN 300 MG CAPSULE PO SCH ×3 (07:33→20:41)
--- NOTE | 2017-01-08 09:11 | PN ---
<Kristin Lozano - Last Filed: 01/08/17 09:19> Subjective - Date and Time Seen Date: 01/08/17 Time: 09:11 Subjective Narrative: frustrated with water weight not coming off faster. c/o feeling weak. c/o overall body pain. c/o knee pain from fall. urine out 3400. weight down 0.6 kg. I/O -1959. Objective - Review of Systems Generalized/Overall Review: Reports: Weakness, Fatigue. Denies: Chills, Fever EENTM: Reports: No Symptoms Reported Respiratory: Reports: Shortness of Breath. Denies: Wheezing Cardiac: Reports: Edema. Denies: Chest Pain, Palpitations, Syncope Abdominal: Reports: No Symptoms Reported Genitourinary Symptoms: Reports: No Symptoms Reported Musculoskeletal Complaints: Reports: No Symptoms Reported Neurological: Reports: No Symptoms Reported Skin: Reports: No Symptoms Reported Misc: All systems neg except as marked - Vitals Vitals: Last Vital Signs Temp 37.2 C 01/08/17 07:14 Pulse 82 01/08/17 07:14 Resp 20 01/08/17 07:14 BP 128/78 01/08/17 07:14 Pulse Ox 92 01/08/17 07:14 - Abnormal Lab Findings Abnormal Lab Findings: Abnormal Lab Results 01/08/17 01/08/17 Range/Units 05:25 05:25 Hgb 11.7 L (12.5-16.0) gm/dL MCH 26.9 L (27-31) pg MCHC 29.4 L (32-36) g/dl RDW 16.2 H (11.5-14.0) % Lymphocytes % 13.3 L (20-51) % Monocytes % 14.5 H (0.0-9) % Lymphocytes # 0.9 L (1.5-3.5) k/mm3 Chloride 84 L (97-106) mmol/L Carbon Dioxide 49.7 H (24-32.6) mmol/L Anion Gap 1.9 L (6.8-13.8) mmol/L Random Glucose 195 H (70-110) mg/dL - Exam Constitutional: Present: Alert, Cooperative, No distress, Morbidly obese, Looks Older than stated age ENT Exam: Present: hearing grossly normal Neck: Present: supple Breasts: Present: Exam deferred Respiratory: Present: decreased breath sounds, crackles - bilat bases Cardiovascular/Chest: Present: regular rate, rhythm, no chest tenderness, edema - 2+ bilat lower legs Abdomen: Present: soft, nontender, obese /Rectal: Present: Exam deferred Extremity: Present: lower extremity edema - 2+ lower extremity bilat Skin Exam: Present: normal color, warm/dry, no cyanosis Cauti Physician Documentation - Urinary Catheter Management Uretheral (Dominguez) Urethral Indwelling: Yes Reason for Continuing Indwelling Catheter: Measure accurate output Date of Insertion: 01/05/17 Time of Insertion: 12:31 Assessment/Plan Plan Narrative: 56 year old female admitted with a CHF exac, acute on chronic respiratory failure with hypoxia and hypercapnia, weakness and fatigue. TSH checked and is wnl. UA suggestive of UTI but little bacteria present (+1) and with normal WBC and no fever, one dose of rocephin given. final urine culture showed no grown. CHF exac, patient diuresis 3400 ml in the last 24 hours with a decrease of 0.6 kg in weight. I/O -1960. lasix at 80 mg iv bid. recheck labs in the am. daily weights and strict I&Os. chf teaching. hold off on an echo as they have proven to be extremely technically difficult in the past with little information gained as the patient does not tolerate them. PT/OT for weakness and fatigue. pt is still significantly weak and is able to get out of bed with max assist and walk 1-2 steps. prior to this illness, patient was able to get out of bed by herself and walk around home, cook and take care of herself. pt needs to continue to stay in the hospital for continued diuresis and PT/OT. - Problems/Diagnosis (1) CHF (congestive heart failure) Problem: Acute QualifierTitle: Congestive heart failure type: diastolic Congestive heart failure chronicity: acute on chronic Qualified Code(s): I50.33 - Acute on chronic diastolic (congestive) heart failure (2) Acute respiratory failure Problem: Acute QualifierTitle: Respiratory failure complication: hypoxia and hypercapnia Qualified Code(s): J96.01 - Acute respiratory failure with hypoxia; J96.02 - Acute respiratory failure with hypercapnia (3) Diabetes 1.5, managed as type 1 Problem: Chronic (4) Hyperlipidemia Problem: Chronic QualifierTitle: Hyperlipidemia type: unspecified Qualified Code(s): E78.5 - Hyperlipidemia, unspecified (5) Hypertension Problem: Chronic QualifierTitle: Hypertension type: essential hypertension Qualified Code( s): I10 - Essential (primary) hypertension (6) Hypothyroidism Problem: Chronic QualifierTitle: Hypothyroidism type: acquired Qualified Code(s): E03.9 - Hypothyroidism, unspecified (7) Morbid obesity Problem: Chronic (8) Obstructive sleep apnea Problem: Chronic (9) Pickwickian syndrome Problem: Chronic (10) Weakness generalized Problem: Acute (11) Fatigue Problem: Acute QualifierTitle: Fatigue type: unspecified Qualified Code(s): R53.83 - Other fatigue <Leo Adamson - Last Filed: 01/08/17 15:18> Subjective Subjective Narrative: Diuresis is slow. Is getting stronger. Wants sausage to eat. Fell twice a month ago at home. Hurt her hip and knee. Fire department had to come twice to get her up. She says neither her knee or hip were xrayed. her knee was xrayed in the ER. We will do a hip pelvis xray. The pain med here is not helping. We will switch to [place]. She wants sausage to eat. We will add to her diet. We will increase her Lasix and follow her labs. I personally direct all her nurse practitioner care for this patient. Objective - Vitals Vitals: Last Vital Signs Temp 36.4 C L 01/08/17 14:52 Pulse 79 01/08/17 14:52 Resp 20 01/08/17 14:52 BP 122/58 01/08/17 14:52 Pulse Ox 91 01/08/17 14:52 - Abnormal Lab Findings Abnormal Lab Findings: Abnormal Lab Results 01/08/17 01/08/17 Range/Units 05:25 05:25 Hgb 11.7 L (12.5-16.0) gm/dL MCH 26.9 L (27-31) pg MCHC 29.4 L (32-36) g/dl RDW 16.2 H (11.5-14.0) % Lymphocytes % 13.3 L (20-51) % Monocytes % 14.5 H (0.0-9) % Lymphocytes # 0.9 L (1.5-3.5) k/mm3 Chloride 84 L (97-106) mmol/L Carbon Dioxide 49.7 H (24-32.6) mmol/L Anion Gap 1.9 L (6.8-13.8) mmol/L Random Glucose 195 H (70-110) mg/dL
[2017-01-08] MEDS: FUROSEMIDE 10 MG/ML VIAL IV SCH ×2 (09:33→17:17)
[2017-01-08] MEDS: FLUoxetine HCL 20 MG CAPSULE PO SCH (09:52)
[2017-01-08] MEDS: buPROPion HCL 150 MG TABLET.SA PO SCH ×2 (09:52→20:42)
[2017-01-08] MEDS: lamoTRIgine 100 MG TABLET PO SCH (09:53)
[2017-01-08] MEDS: SPIRONOLACTONE 25 MG TABLET PO SCH ×2 (09:53→20:40)
[2017-01-08] MEDS: CLOBETASOL PROPIONATE 15 APPL TUBE TP SCH ×2 (09:53→20:41)
[2017-01-08] MEDS: CYANOCOBALAMIN 1,000 MCG TABLET PO SCH (09:53)
[2017-01-08] MEDS: FAMOTIDINE 20 MG TABLET PO SCH (09:53)
[2017-01-08] MEDS: MULTIVITAMINS 1 CAP CAPSULE PO SCH (09:53)
[2017-01-08] MEDS: ACETAMINOPHEN 325 MG TABLET PO SCH (09:53)
[2017-01-08] MEDS: METOCLOPRAMIDE HCL 10 MG TABLET PO SCH ×3 (09:53→17:23)
[2017-01-08] MEDS: CHOLECALCIFEROL 1,000 UNIT CAPSULE PO SCH (09:54)
[2017-01-08] MEDS: NYSTATIN 15 APPL BTL TP SCH ×4 (09:59→20:44)
[2017-01-08] MEDS: INSUL NPH HU REC/INS RG HU REC 100 UNITS/ML VIAL SC SCH (10:05)
[2017-01-08] MEDS ORDERED: HYDROcodone/ACETAMINOPHEN 1 EACH TABLET PO PRN (13:05)
[2017-01-08] MEDS: ENOXAPARIN SODIUM 40 MG/0.4 ML SYRG SC SCH (15:44)
[2017-01-08] MEDS: MONTELUKAST SODIUM 10 MG TABLET PO SCH (20:41)
[2017-01-09] MEDS: OXYBUTYNIN CHLORIDE 5 MG TABLET PO SCH ×4 (03:49→20:31)
[2017-01-09] MEDS: BISACODYL 5 MG TABLET.DR PO PRN (03:49)
[2017-01-09 05:53] LABS: Hemoglobin 11.5 gm/dL (12.5-16.0); Mean Cell Volume 90.7 fl (78-100); Mean Corpuscular Hemoglobin 26.7 pg (27-31); Mean Corpuscular Hgb Conc 29.5 g/dl (32-36); Mean Platelet Volume 9.1 fl (6.0-9.5); Neutrophil # 4.4 K/mm3 (1.3-6.0); Neutrophil % 65.4 % (42-75.0); Platelet Count 172 K/mm3 (150-450); Red Cell Distribution Width 16.1 % (11.5-14.0); White Blood Count 6.8 K/mm3 (4.0-10.5)
[2017-01-09 06:05] LABS: BUN/Creatinine Ratio 15.6 (9.0-21.6); Blood Urea Nitrogen 14 mg/dL (3-23); Calcium * 8.7 mg/dL (7.9-10.9); Chloride 84 mmol/L (97-106); Estimated Creat Clear 56.4; Glucose * 200 mg/dL (70-110); Potassium 3.6 mmol/L (3.4-4.6); Sodium 132 mmol/L (132-142)
[2017-01-09 06:18] LABS: Carbon Dioxide 53.5 mmol/L (24-32.6)
[2017-01-09] MEDS: GABAPENTIN 300 MG CAPSULE PO SCH ×3 (07:07→20:32)
[2017-01-09] MEDS: LEVOTHYROXINE SODIUM 150 MCG TABLET PO SCH (07:08)
[2017-01-09] MEDS: SPIRONOLACTONE 25 MG TABLET PO SCH ×2 (08:31→20:31)
[2017-01-09] MEDS: lamoTRIgine 100 MG TABLET PO SCH (08:31)
[2017-01-09] MEDS: FUROSEMIDE 10 MG/ML VIAL IV SCH ×3 (08:32→16:50)
[2017-01-09] MEDS: NYSTATIN 15 APPL BTL TP SCH ×4 (08:33→20:31)
[2017-01-09] MEDS: MULTIVITAMINS 1 CAP CAPSULE PO SCH (08:33)
[2017-01-09] MEDS: FAMOTIDINE 20 MG TABLET PO SCH (08:33)
[2017-01-09] MEDS: METOCLOPRAMIDE HCL 10 MG TABLET PO SCH ×3 (08:34→16:51)
[2017-01-09] MEDS: FLUoxetine HCL 20 MG CAPSULE PO SCH (08:34)
[2017-01-09] MEDS: CHOLECALCIFEROL 1,000 UNIT CAPSULE PO SCH (08:35)
[2017-01-09] MEDS: CLOBETASOL PROPIONATE 15 APPL TUBE TP SCH ×2 (08:35→20:31)
[2017-01-09] MEDS: CYANOCOBALAMIN 1,000 MCG TABLET PO SCH (08:35)
[2017-01-09] MEDS: buPROPion HCL 150 MG TABLET.SA PO SCH ×2 (08:36→20:33)
[2017-01-09] MEDS: INSUL NPH HU REC/INS RG HU REC 100 UNITS/ML VIAL SC SCH (08:41)
--- NOTE | 2017-01-09 09:40 | PN ---
<Kristin Lozano - Last Filed: 01/09/17 10:17> Subjective - Date and Time Seen Date: 01/09/17 Time: 09:40 Subjective Narrative: sleepy, upset that i woke her up. unwilling to answer questions. Objective - Review of Systems Generalized/Overall Review: Denies: No Symptoms Reported - unable to complete as patient is unwilling to answer questions. - Vitals Vitals: Last Vital Signs Temp 36.5 C 01/09/17 07:07 Pulse 87 01/09/17 08:32 Resp 22 H 01/09/17 07:07 BP 115/72 01/09/17 08:32 Pulse Ox 95 01/09/17 07:07 - Abnormal Lab Findings Abnormal Lab Findings: Abnormal Lab Results 01/09/17 01/09/17 Range/Units 05:40 05:40 Hgb 11.5 L (12.5-16.0) gm/dL MCH 26.7 L (27-31) pg MCHC 29.5 L (32-36) g/dl RDW 16.1 H (11.5-14.0) % Lymphocytes % 15.7 L (20-51) % Monocytes % 15.5 H (0.0-9) % Lymphocytes # 1.1 L (1.5-3.5) k/mm3 Monocytes # 1.1 H (0.0-1.0) k/mm3 Chloride 84 L (97-106) mmol/L Carbon Dioxide 53.5 H (24-32.6) mmol/L Anion Gap Less than 1.0 L (6.8-13.8) mmol/L Random Glucose 200 H (70-110) mg/dL - Exam Constitutional: Present: No distress, Lethargic, Morbidly obese, Looks Older than stated age ENT Exam: Present: hard of hearing Breasts: Present: Exam deferred Respiratory: Present: no respiratory distress, decreased breath sounds Cardiovascular/Chest: Present: regular rate, rhythm, no chest tenderness Abdomen: Present: soft, nontender, obese /Rectal: Present: Exam deferred Extremity: Present: non-tender, lower extremity edema - 2+ lower extremity edema bilat Skin Exam: Present: warm/dry, no cyanosis, pallor Cauti Physician Documentation - Urinary Catheter Management Uretheral (Dominguez) Urethral Indwelling: Yes Reason for Continuing Indwelling Catheter: Measure accurate output Date of Insertion: 01/05/17 Time of Insertion: 12:31 Assessment/Plan Plan Narrative: 56 year old female admitted with a CHF exac, acute on chronic respiratory failure with hypoxia and hypercapnia, weakness and fatigue. TSH checked and is wnl. UA suggestive of UTI but little bacteria present (+1) and with normal WBC and no fever, one dose of rocephin given. final urine culture showed no grown. CHF exac, patient diuresis 4500 ml in the last 24 hours with a increase of 0.7 kg in weight. I/O -2380. lasix at 80 mg iv tid. recheck labs in the am. daily weights and strict I&Os. chf teaching. hold off on an echo as they have proven to be extremely technically difficult in the past with little information gained as the patient does not tolerate them. PT/OT for weakness and fatigue. pt is still significantly weak and is able to get out of bed with max assist. prior to this illness, patient was able to get out of bed by herself and walk around home, cook and take care of herself. pt needs to continue to stay in the hospital for continued diuresis and PT/OT. - Problems/Diagnosis (1) CHF (congestive heart failure) Problem: Acute QualifierTitle: Congestive heart failure type: diastolic Congestive heart failure chronicity: acute on chronic Qualified Code(s): I50.33 - Acute on chronic diastolic (congestive) heart failure (2) Acute respiratory failure Problem: Acute QualifierTitle: Respiratory failure complication: hypoxia and hypercapnia Qualified Code(s): J96.01 - Acute respiratory failure with hypoxia; J96.02 - Acute respiratory failure with hypercapnia (3) Diabetes 1.5, managed as type 1 Problem: Chronic (4) Hyperlipidemia Problem: Chronic QualifierTitle: Hyperlipidemia type: unspecified Qualified Code(s): E78.5 - Hyperlipidemia, unspecified (5) Hypertension Problem: Chronic QualifierTitle: Hypertension type: essential hypertension Qualified Code( s): I10 - Essential (primary) hypertension (6) Hypothyroidism Problem: Chronic QualifierTitle: Hypothyroidism type: acquired Qualified Code(s): E03.9 - Hypothyroidism, unspecified (7) Morbid obesity Problem: Chronic (8) Obstructive sleep apnea Problem: Chronic (9) Pickwickian syndrome Problem: Chronic (10) Weakness generalized Problem: Acute (11) Fatigue Problem: Acute QualifierTitle: Fatigue type: unspecified Qualified Code(s): R53.83 - Other fatigue <Leo Adamson - Last Filed: 01/09/17 12:59> Subjective Subjective Narrative: Very drowsy from pain medicine. Will back off by 50%. I personally directed all of our nurse practitioner hospitalist care for this person. Objective - Vitals Vitals: Last Vital Signs Temp 36.8 C 01/09/17 10:21 Pulse 88 01/09/17 10:21 Resp 22 H 01/09/17 10:21 BP 115/77 01/09/17 10:21 Pulse Ox 93 01/09/17 10:21 - Abnormal Lab Findings Abnormal Lab Findings: Abnormal Lab Results 01/09/17 01/09/17 Range/Units 05:40 05:40 Hgb 11.5 L (12.5-16.0) gm/dL MCH 26.7 L (27-31) pg MCHC 29.5 L (32-36) g/dl RDW 16.1 H (11.5-14.0) % Lymphocytes % 15.7 L (20-51) % Monocytes % 15.5 H (0.0-9) % Lymphocytes # 1.1 L (1.5-3.5) k/mm3 Monocytes # 1.1 H (0.0-1.0) k/mm3 Chloride 84 L (97-106) mmol/L Carbon Dioxide 53.5 H (24-32.6) mmol/L Anion Gap Less than 1.0 L (6.8-13.8) mmol/L Random Glucose 200 H (70-110) mg/dL
[2017-01-09] MEDS ORDERED: INSULIN DETEMIR 100 UNITS/ML VIAL SC SCH (11:00)
[2017-01-09] MEDS ORDERED: HYDROcodone/ACETAMINOPHEN 1 EACH TABLET PO PRN (11:25)
[2017-01-09] MEDS: ENOXAPARIN SODIUM 40 MG/0.4 ML SYRG SC SCH (16:50)
[2017-01-09] MEDS: MONTELUKAST SODIUM 10 MG TABLET PO SCH (20:32)
[2017-01-09] MEDS: INSULIN DETEMIR 100 UNITS/ML VIAL SC SCH (20:36)
[2017-01-10] MEDS: ALBUTEROL SULFATE/IPRATROPIUM 3 ML NEBU IH PRN (03:03)
[2017-01-10] MEDS ORDERED: ALPRAZolam 0.25 MG TABLET PO ONE ×2 (05:37)
--- NOTE | 2017-01-10 05:37 | PN ---
<Natalie Jain - Last Filed: 01/10/17 06:53> Subjective - Date and Time Seen Date: 01/10/17 Time: 05:35 Subjective Narrative: Pt examined this am. Nursing reported being found dusky without her Nasal canula for an unknown time frame in the night and pox dropped to 60s% on RA. Is chronically on 3 L of O2. Able to recuperate to 90s following neb treatment and O2 supplementation. Was confused according to nursing. Placed on BIPAP ( 29/09) with 50% fio2. Not much improvement after 1 hour. Given Xanax in order to comply with BIPAP as she complains of feeling claustrophobic and cannot leave the mask on. Will recheck ABG's in 1 hour. Objective - Vitals Vitals: Last Vital Signs Temp 36.9 C 01/10/17 02:20 Pulse 95 01/10/17 03:25 Resp 35 H 01/10/17 03:25 BP 140/88 01/10/17 02:20 Pulse Ox 90 01/10/17 03:25 - Abnormal Lab Findings Abnormal Lab Findings: Abnormal Lab Results 01/09/17 01/09/17 01/10/17 Range/Units 05:40 05:40 02:55 Hgb 11.5 L (12.5-16.0) gm/dL MCH 26.7 L (27-31) pg MCHC 29.5 L (32-36) g/dl RDW 16.1 H (11.5-14.0) % Lymphocytes % 15.7 L (20-51) % Monocytes % 15.5 H (0.0-9) % Lymphocytes # 1.1 L (1.5-3.5) k/mm3 Monocytes # 1.1 H (0.0-1.0) k/mm3 pCO2 93.8 H* (32.0-45.0) mmHg pO2 54.0 L (83.0-108.0) mmHg HCO3 57.9 H (21.0-28.0) mmol/L Total CO2 60.7 H (19.0-24.0) mmol/L Base Excess 26.3 H (-2.0-3.0) mmol/L ABG O2 Sat (Measured) 85.7 L (94.0-98.0) % Chloride 84 L (97-106) mmol/L Carbon Dioxide 53.5 H (24-32.6) mmol/L Anion Gap Less than 1.0 L (6.8-13.8) mmol/L Random Glucose 200 H (70-110) mg/dL 01/10/17 Range/Units 04:30 Hgb (12.5-16.0) gm/dL MCH (27-31) pg MCHC (32-36) g/dl RDW (11.5-14.0) % Lymphocytes % (20-51) % Monocytes % (0.0-9) % Lymphocytes # (1.5-3.5) k/mm3 Monocytes # (0.0-1.0) k/mm3 pCO2 90.3 H* (32.0-45.0) mmHg pO2 79.7 L (83.0-108.0) mmHg HCO3 54.4 H (21.0-28.0) mmol/L Total CO2 57.2 H (19.0-24.0) mmol/L Base Excess 23.4 H (-2.0-3.0) mmol/L ABG O2 Sat (Measured) (94.0-98.0) % Chloride (97-106) mmol/L Carbon Dioxide (24-32.6) mmol/L Anion Gap (6.8-13.8) mmol/L Random Glucose (70-110) mg/dL - Exam Constitutional: Present: Alert, Cooperative, No distress ENT Exam: Present: normal ENT inspection, dry mucous membranes Neck: Present: full range of motion Breasts: Present: Exam deferred Respiratory: Present: decreased breath sounds Cardiovascular/Chest: Present: normal peripheral pulses, regular rate, rhythm Abdomen: Present: Normal bowel sounds, soft, nontender, obese /Rectal: Present: Other - Dominguez Catheter Extremity: Present: lower extremity edema - 2+ Pitting Edema BLE. Skin Exam: Present: other - Erythema on BLE Lymphatic: Present: no adenopathy Neurologic: Present: alert - To self and place only Appearance: Present: impaired insight Eye contact: Present: cooperative, normal speech Thoughts: Present: visual hallucinations - reaches out for objects in the air. Cauti Physician Documentation - Urinary Catheter Management Uretheral (Dominguez) Urethral Indwelling: Yes Date of Insertion: 01/05/17 Time of Insertion: 12:31 Assessment/Plan - Problems/Diagnosis (1) Acute and chronic respiratory failure ([id number]) Problem: Acute Narrative: Was confused initially and having visual hallucincation. Nursing reports improved mentation since being placed on the BIPAP, however, during exam, she is noted picking in the air. Past ABGs shows chronic respiratory acidosis. Will try to correct her ABGs to baseline or at least to her mentation being more clearer. No sign of laboured breathing. Will try Xanax so that she can comply with the BIPAP mask. Has struggled with it in the past due to the feeling of claustrophobia. Still on Lasix to help with Pulmonary congestion. Laboratory Tests 07/13/14 07/13/14 07/14/14 03:25 13:25 04:27 pCO2 89.8 H* 77.2 H* 82.4 H* HCO3 54.9 H 49.4 H 53.0 H ABG pH 7.40 7.42 7.43 01/05/17 01/10/17 01/10/17 10:55 02:55 04:30 pCO2 75.9 H* 93.8 H* 90.3 H* HCO3 43.4 H 57.9 H 54.4 H ABG pH 7.38 7.41 7.40 01/10/17 06:10 pCO2 82.3 H* HCO3 50.9 H ABG pH 7.41 (2) CHF exacerbation Problem: Acute Narrative: Continue IV diuretics. Monitor labs. (3) Generalized weakness Problem: Acute Narrative: Requires maximum assistance. Continue PT for strengthening. Will benefit from placement. (4) Hypertension Problem: Chronic QualifierTitle: Hypertension type: essential hypertension Qualified Code( s): I10 - Essential (primary) hypertension (5) Hypothyroidism Problem: Chronic QualifierTitle: Hypothyroidism type: acquired Qualified Code(s): E03.9 - Hypothyroidism, unspecified (6) Diabetes 1.5, managed as type 1 Problem: Chronic Narrative: ACHS Accu checks. Insulin Detemir (Levemir) 6 units SC BID IRMA Insulin Human Isoph/Insulin Regular (Novolin 70/30) 0 units SC DAILY IRMA (7) Morbid obesity Problem: Chronic (8) Obstructive sleep apnea Problem: Chronic (9) Pickwickian syndrome Problem: Chronic <Leo Adamson - Last Filed: 01/10/17 07:26> Subjective Subjective Narrative: I personally directed the nurse practitioner hospitalist care for this patient. Narcotics were completely stopped yesterday and the patient was switched to tylenol only. Objective - Vitals Vitals: Last Vital Signs Temp 36.9 C 01/10/17 02:20 Pulse 95 01/10/17 03:25 Resp 35 H 01/10/17 03:25 BP 140/88 01/10/17 02:20 Pulse Ox 90 01/10/17 03:25 - Abnormal Lab Findings Abnormal Lab Findings: Abnormal Lab Results 01/10/17 01/10/17 01/10/17 Range/Units 02:55 04:30 06:10 pCO2 93.8 H* 90.3 H* 82.3 H* (32.0-45.0) mmHg pO2 54.0 L 79.7 L 65.7 L (83.0-108.0) mmHg HCO3 57.9 H 54.4 H 50.9 H (21.0-28.0) mmol/L Total CO2 60.7 H 57.2 H 53.4 H (19.0-24.0) mmol/L Base Excess 26.3 H 23.4 H 20.8 H (-2.0-3.0) mmol/L ABG O2 Sat (Measured) 85.7 L 91.9 L (94.0-98.0) %
[2017-01-10] MEDS ORDERED: ALPRAZolam 0.5 MG TABLET ONE (05:44)
[2017-01-10] MEDS: CLOBETASOL PROPIONATE 15 APPL TUBE TP SCH ×2 (09:00→21:39)
[2017-01-10] MEDS: NYSTATIN 15 APPL BTL TP SCH ×4 (09:00→21:39)
[2017-01-10] MEDS: AZITHROMYCIN 250 MG TABLET PO SCH (09:00)
[2017-01-10] MEDS: LEVOTHYROXINE SODIUM 150 MCG TABLET PO SCH (09:01)
[2017-01-10] MEDS: GABAPENTIN 300 MG CAPSULE PO SCH ×3 (09:01→21:38)
[2017-01-10] MEDS: buPROPion HCL 150 MG TABLET.SA PO SCH ×2 (09:01→21:39)
[2017-01-10] MEDS: MULTIVITAMINS 1 CAP CAPSULE PO SCH (09:01)
[2017-01-10] MEDS: OXYBUTYNIN CHLORIDE 5 MG TABLET PO SCH ×4 (09:01→21:38)
[2017-01-10] MEDS: lamoTRIgine 100 MG TABLET PO SCH (09:01)
[2017-01-10] MEDS: FAMOTIDINE 20 MG TABLET PO SCH (09:01)
[2017-01-10] MEDS: FLUoxetine HCL 20 MG CAPSULE PO SCH (09:01)
[2017-01-10] MEDS: CHOLECALCIFEROL 1,000 UNIT CAPSULE PO SCH (09:01)
[2017-01-10] MEDS: METOCLOPRAMIDE HCL 10 MG TABLET PO SCH ×3 (09:01→17:02)
[2017-01-10] MEDS: SPIRONOLACTONE 25 MG TABLET PO SCH ×2 (09:02→21:38)
[2017-01-10] MEDS: INSULIN DETEMIR 100 UNITS/ML VIAL SC SCH ×2 (09:02→21:42)
[2017-01-10] MEDS: POLYETHYLENE GLYCOL 3350 119 GM BTL PO PRN (09:02)
[2017-01-10] MEDS: FUROSEMIDE 10 MG/ML VIAL IV SCH ×3 (09:03→17:01)
[2017-01-10] MEDS: INSUL NPH HU REC/INS RG HU REC 100 UNITS/ML VIAL SC SCH (09:05)
[2017-01-10] MEDS: CYANOCOBALAMIN 1,000 MCG TABLET PO SCH (13:28)
[2017-01-10] MEDS: INSULIN LISPRO 100 UNITS/ML VIAL SC SCH ×3 (16:35→21:44)
[2017-01-10] MEDS: ENOXAPARIN SODIUM 40 MG/0.4 ML SYRG SC SCH (17:02)
[2017-01-10] MEDS: MONTELUKAST SODIUM 10 MG TABLET PO SCH (21:39)
[2017-01-11 06:17] LABS: Hematocrit 39.1 % (37.0-47.0); Hemoglobin 11.6 gm/dL (12.5-16.0); Mean Cell Volume 90.3 fl (78-100); Mean Corpuscular Hemoglobin 26.8 pg (27-31); Mean Corpuscular Hgb Conc 29.7 g/dl (32-36); Mean Platelet Volume 9.1 fl (6.0-9.5); Neutrophil # 4.5 K/mm3 (1.3-6.0); Neutrophil % 64.5 % (42-75.0); Platelet Count 192 K/mm3 (150-450); Red Blood Count 4.33 M/mm3 (4.2-5.4); Red Cell Distribution Width 16.4 % (11.5-14.0)
[2017-01-11 06:32] LABS: BUN/Creatinine Ratio 19.4 (9.0-21.6); Blood Urea Nitrogen 14 mg/dL (3-23); Calcium * 8.8 mg/dL (7.9-10.9); Chloride 88 mmol/L (97-106); Estimated Creat Clear 70.5; Glucose * 71 mg/dL (70-110); Potassium 3.3 mmol/L (3.4-4.6); Sodium 138 mmol/L (132-142)
[2017-01-11] MEDS: INSULIN LISPRO 100 UNITS/ML VIAL SC SCH ×4 (06:36→21:00)
[2017-01-11] MEDS: OXYBUTYNIN CHLORIDE 5 MG TABLET PO SCH ×4 (06:37→20:59)
[2017-01-11] MEDS: LEVOTHYROXINE SODIUM 150 MCG TABLET PO SCH (06:37)
[2017-01-11] MEDS: GABAPENTIN 300 MG CAPSULE PO SCH ×3 (06:38→20:58)
[2017-01-11 06:49] LABS: Carbon Dioxide 63.1 mmol/L (24-32.6)
[2017-01-11] MEDS: ALBUTEROL SULFATE/IPRATROPIUM 3 ML NEBU IH PRN (06:59)
[2017-01-11] MEDS: NYSTATIN 15 APPL BTL TP SCH ×4 (08:46→20:59)
[2017-01-11] MEDS: CLOBETASOL PROPIONATE 15 APPL TUBE TP SCH ×2 (08:46→20:59)
[2017-01-11] MEDS: buPROPion HCL 150 MG TABLET.SA PO SCH ×2 (08:47→20:58)
[2017-01-11] MEDS: lamoTRIgine 100 MG TABLET PO SCH (08:47)
[2017-01-11] MEDS: SPIRONOLACTONE 25 MG TABLET PO SCH ×2 (08:47→20:59)
[2017-01-11] MEDS: MULTIVITAMINS 1 CAP CAPSULE PO SCH (08:48)
[2017-01-11] MEDS: CHOLECALCIFEROL 1,000 UNIT CAPSULE PO SCH (08:48)
[2017-01-11] MEDS: METOCLOPRAMIDE HCL 10 MG TABLET PO SCH ×3 (08:49→16:38)
[2017-01-11] MEDS: FLUoxetine HCL 20 MG CAPSULE PO SCH (08:49)
[2017-01-11] MEDS: FAMOTIDINE 20 MG TABLET PO SCH (08:49)
[2017-01-11] MEDS: CYANOCOBALAMIN 1,000 MCG TABLET PO SCH (08:50)
[2017-01-11] MEDS: INSULIN DETEMIR 100 UNITS/ML VIAL SC SCH ×2 (08:53→21:00)
[2017-01-11] MEDS: FUROSEMIDE 10 MG/ML VIAL IV SCH ×3 (08:54→16:38)
--- NOTE | 2017-01-11 09:15 | PN ---
Subjective - Date and Time Seen Date: 01/11/17 Time: 07:40 Subjective Narrative: Has a cough, but says she always does chronically. Abdomen tight, more on the left side, but diuresing. Weak. Hard to walk. Objective - Review of Systems Generalized/Overall Review: Reports: Weakness EENTM: Reports: No Symptoms Reported Respiratory: Reports: Cough Cardiac: Reports: Edema Abdominal: Reports: Other - tight Genitourinary Symptoms: Reports: No Symptoms Reported Musculoskeletal Complaints: Reports: No Symptoms Reported Neurological: Reports: No Symptoms Reported Skin: Reports: Other - tight abdominal skine Endocrine: Reports: No Symptoms Reported Misc: All systems neg except as marked - Vitals Vitals: Last Vital Signs Selected Entries 01/11/17 07:20 Temperature 36.1 C L Temperature Temporal Artery Source Scan Pulse Rate 80 Respiratory 24 H Rate Blood Pressure 122/61 Blood Pressure Supine Position O2 Sat by Pulse 91 Oximetry Oxygen Delivery Nasal Cannula Method Oxygen Flow 3 Rate - Abnormal Lab Findings Abnormal Lab Findings: Abnormal Lab Results 01/11/17 01/11/17 Range/Units 06:05 06:05 Hgb 11.6 L (12.5-16.0) gm/dL MCH 26.8 L (27-31) pg MCHC 29.7 L (32-36) g/dl RDW 16.4 H (11.5-14.0) % Lymphocytes % 17.1 L (20-51) % Monocytes % 15.4 H (0.0-9) % Lymphocytes # 1.2 L (1.5-3.5) k/mm3 Monocytes # 1.1 H (0.0-1.0) k/mm3 Potassium 3.3 L (3.4-4.6) mmol/L Chloride 88 L (97-106) mmol/L Carbon Dioxide 63.1 H (24-32.6) mmol/L Anion Gap Less than 1.0 L (6.8-13.8) mmol/L - Exam Constitutional: Present: Alert, Oriented x3, Cooperative, Well developed, No distress, Morbidly obese ENT Exam: Present: normal ENT inspection, hearing grossly normal Neck: Present: normal inspection Respiratory: Present: no respiratory distress, wheezing, expiration (prolonged) Cardiovascular/Chest: Present: regular rate, rhythm, edema Abdomen: Present: Normal bowel sounds, soft, nontender, nondistended, no rebound tenderness, obese Extremity: Present: lower extremity edema, pedal edema Skin Exam: Present: normal color, warm/dry, no cyanosis Neurologic: Present: alert, oriented x 3 Appearance: Present: appropriate appearance, neat Eye contact: Present: cooperative, good eye contact, normal speech Cauti Physician Documentation - Urinary Catheter Management Uretheral (Dominguez) Urethral Indwelling: Yes Date of Insertion: 01/05/17 Time of Insertion: 12:31 Assessment/Plan Plan Narrative: Yves. CXR. Bharath. PT. - Problems/Diagnosis (1) Acute and chronic respiratory failure ([id number]) Problem: Acute (2) Acute exacerbation of CHF (congestive heart failure) Problem: Acute Qualifiers: Congestive heart failure type: unspecified congestive heart failure type Qualified Code(s): I50.9 - Heart failure, unspecified (3) Fatigue Problem: Acute Qualifiers: Fatigue type: unspecified Qualified Code(s): R53.83 - Other fatigue (4) Generalized weakness Problem: Acute (5) Respiratory failure Problem: Acute (6) COPD exacerbation Problem: Acute (7) Obstructive sleep apnea Problem: Chronic (8) PTSD (post-traumatic stress disorder) Problem: Chronic (9) Pickwickian syndrome Problem: Chronic
[2017-01-11] MEDS: ENOXAPARIN SODIUM 40 MG/0.4 ML SYRG SC SCH (16:35)
[2017-01-11] MEDS: BISACODYL 5 MG TABLET.DR PO PRN (16:44)
[2017-01-11] MEDS: POLYETHYLENE GLYCOL 3350 119 GM BTL PO PRN (16:45)
[2017-01-11] MEDS: MONTELUKAST SODIUM 10 MG TABLET PO SCH (21:01)
[2017-01-12 06:08] LABS: Hematocrit 39.8 % (37.0-47.0); Hemoglobin 11.8 gm/dL (12.5-16.0); Mean Cell Volume 91.1 fl (78-100); Mean Corpuscular Hgb Conc 29.6 g/dl (32-36); Mean Platelet Volume 9.5 fl (6.0-9.5); Neutrophil # 4.1 K/mm3 (1.3-6.0); Platelet Count 219 K/mm3 (150-450); Red Blood Count 4.37 M/mm3 (4.2-5.4); Red Cell Distribution Width 16.5 % (11.5-14.0); White Blood Count 6.5 K/mm3 (4.0-10.5)
[2017-01-12 06:17] LABS: BUN/Creatinine Ratio 18.2 (9.0-21.6); Blood Urea Nitrogen 14 mg/dL (3-23); Calcium * 8.6 mg/dL (7.9-10.9); Chloride 81 mmol/L (97-106); Estimated Creat Clear 65.9; Glucose * 98 mg/dL (70-110); Potassium 3.4 mmol/L (3.4-4.6); Sodium 138 mmol/L (132-142)
[2017-01-12 06:35] LABS: Carbon Dioxide 66.4 mmol/L (24-32.6)
[2017-01-12] MEDS: INSULIN LISPRO 100 UNITS/ML VIAL SC SCH ×4 (07:35→21:14)
[2017-01-12] MEDS: GABAPENTIN 300 MG CAPSULE PO SCH ×3 (07:36→21:15)
[2017-01-12] MEDS: OXYBUTYNIN CHLORIDE 5 MG TABLET PO SCH ×4 (07:37→21:08)
[2017-01-12] MEDS: LEVOTHYROXINE SODIUM 150 MCG TABLET PO SCH (07:37)
[2017-01-12] MEDS: POLYETHYLENE GLYCOL 3350 119 GM BTL PO PRN (07:38)
[2017-01-12] MEDS: BISACODYL 5 MG TABLET.DR PO SCH ×3 (09:07→17:39)
[2017-01-12] MEDS: lamoTRIgine 100 MG TABLET PO SCH (09:07)
[2017-01-12] MEDS: FUROSEMIDE 10 MG/ML VIAL IV SCH ×3 (09:08→17:42)
[2017-01-12] MEDS: INSULIN DETEMIR 100 UNITS/ML VIAL SC SCH ×2 (09:10→21:08)
[2017-01-12] MEDS: NYSTATIN 15 APPL BTL TP SCH ×4 (09:13→21:17)
[2017-01-12] MEDS: MULTIVITAMINS 1 CAP CAPSULE PO SCH (09:13)
[2017-01-12] MEDS: FAMOTIDINE 20 MG TABLET PO SCH (09:14)
[2017-01-12] MEDS: FLUoxetine HCL 20 MG CAPSULE PO SCH (09:15)
[2017-01-12] MEDS: METOCLOPRAMIDE HCL 10 MG TABLET PO SCH ×3 (09:16→17:45)
[2017-01-12] MEDS: CLOBETASOL PROPIONATE 15 APPL TUBE TP SCH ×2 (09:17→21:15)
[2017-01-12] MEDS: CYANOCOBALAMIN 1,000 MCG TABLET PO SCH (09:17)
[2017-01-12] MEDS: CHOLECALCIFEROL 1,000 UNIT CAPSULE PO SCH (09:17)
[2017-01-12] MEDS: buPROPion HCL 150 MG TABLET.SA PO SCH ×2 (09:22→21:17)
[2017-01-12] MEDS: AZITHROMYCIN 250 MG TABLET PO SCH (09:39)
[2017-01-12] MEDS: SPIRONOLACTONE 25 MG TABLET PO SCH ×2 (09:39→21:07)
--- NOTE | 2017-01-12 13:01 | PN ---
Subjective - Date and Time Seen Date: 01/12/17 Time: 07:30 Subjective Narrative: Has a cough, but says she always does chronically. Abdomen tight, more on the left side, but diuresing. Weak. Hard to walk. Objective - Review of Systems Generalized/Overall Review: Reports: Weakness EENTM: Reports: No Symptoms Reported Respiratory: Reports: Cough Cardiac: Reports: Edema Abdominal: Reports: No Symptoms Reported Genitourinary Symptoms: Reports: No Symptoms Reported Musculoskeletal Complaints: Reports: No Symptoms Reported Neurological: Reports: No Symptoms Reported Skin: Reports: No Symptoms Reported Endocrine: Reports: No Symptoms Reported Misc: All systems neg except as marked - Vitals Vitals: Last Vital Signs Selected Entries 01/12/17 02:00 Temperature 37.0 C Temperature Oral Source Pulse Rate 89 Respiratory 18 Rate Blood Pressure 139/70 Blood Pressure Supine Position O2 Sat by Pulse 96 Oximetry Oxygen Delivery Nasal Cannula Method Oxygen Flow 3 Rate - Abnormal Lab Findings Abnormal Lab Findings: Abnormal Lab Results 01/12/17 01/12/17 Range/Units 05:39 05:39 Hgb 11.8 L (12.5-16.0) gm/dL MCHC 29.6 L (32-36) g/dl RDW 16.5 H (11.5-14.0) % Lymphocytes % 19.6 L (20-51) % Monocytes % 14.5 H (0.0-9) % Lymphocytes # 1.3 L (1.5-3.5) k/mm3 Chloride 81 L (97-106) mmol/L Carbon Dioxide 66.4 H (24-32.6) mmol/L Anion Gap Less than 1.0 L (6.8-13.8) mmol/L - Exam Constitutional: Present: Alert, Oriented x3, Cooperative, Well developed, No distress, Morbidly obese ENT Exam: Present: normal ENT inspection, hearing grossly normal Neck: Present: normal inspection Respiratory: Present: lungs clear, no respiratory distress Cardiovascular/Chest: Present: regular rate, rhythm, no murmur Abdomen: Present: Normal bowel sounds, soft, nontender, nondistended, no rebound tenderness, no hepatospenomegaly, obese Extremity: Present: lower extremity edema, pedal edema Skin Exam: Present: normal color, warm/dry, no cyanosis Neurologic: Present: alert, oriented x 3 Appearance: Present: appropriate appearance, neat Eye contact: Present: cooperative, good eye contact, normal speech Cauti Physician Documentation - Urinary Catheter Management Uretheral (Dominguez) Urethral Indwelling: Yes Date of Insertion: 01/05/17 Time of Insertion: 12:31 Assessment/Plan Plan Narrative: MARTI lea. Assisted end of week. - Problems/Diagnosis (1) Acute and chronic respiratory failure ([id number]) Problem: Acute (2) Acute exacerbation of CHF (congestive heart failure) Problem: Acute Qualifiers: Congestive heart failure type: unspecified congestive heart failure type Qualified Code(s): I50.9 - Heart failure, unspecified (3) Fatigue Problem: Acute Qualifiers: Fatigue type: unspecified Qualified Code(s): R53.83 - Other fatigue (4) Generalized weakness Problem: Acute (5) Respiratory failure Problem: Acute (6) COPD exacerbation Problem: Acute (7) Obstructive sleep apnea Problem: Chronic (8) PTSD (post-traumatic stress disorder) Problem: Chronic (9) Pickwickian syndrome Problem: Chronic
[2017-01-12] MEDS: ENOXAPARIN SODIUM 40 MG/0.4 ML SYRG SC SCH (17:44)
[2017-01-12] MEDS: MONTELUKAST SODIUM 10 MG TABLET PO SCH (21:15)
[2017-01-13] MEDS: FUROSEMIDE 10 MG/ML VIAL IV SCH ×3 (08:32→17:26)
[2017-01-13] MEDS: INSULIN LISPRO 100 UNITS/ML VIAL SC SCH ×4 (08:32→20:34)
[2017-01-13] MEDS: INSULIN DETEMIR 100 UNITS/ML VIAL SC SCH ×2 (08:33→20:34)
[2017-01-13] MEDS: LEVOTHYROXINE SODIUM 150 MCG TABLET PO SCH (08:33)
[2017-01-13] MEDS: CHOLECALCIFEROL 1,000 UNIT CAPSULE PO SCH (08:33)
[2017-01-13] MEDS: GABAPENTIN 300 MG CAPSULE PO SCH ×3 (08:34→20:35)
[2017-01-13] MEDS: MULTIVITAMINS 1 CAP CAPSULE PO SCH (08:34)
[2017-01-13] MEDS: FLUoxetine HCL 20 MG CAPSULE PO SCH (08:34)
[2017-01-13] MEDS: buPROPion HCL 150 MG TABLET.SA PO SCH ×2 (08:34→20:35)
[2017-01-13] MEDS: CYANOCOBALAMIN 1,000 MCG TABLET PO SCH (08:34)
[2017-01-13] MEDS: OXYBUTYNIN CHLORIDE 5 MG TABLET PO SCH ×4 (08:35→20:34)
[2017-01-13] MEDS: FAMOTIDINE 20 MG TABLET PO SCH (08:35)
[2017-01-13] MEDS: BISACODYL 5 MG TABLET.DR PO SCH ×3 (08:35→17:26)
[2017-01-13] MEDS: SPIRONOLACTONE 25 MG TABLET PO SCH ×2 (08:35→20:34)
[2017-01-13] MEDS: POLYETHYLENE GLYCOL 3350 119 GM BTL PO PRN (08:36)
[2017-01-13] MEDS: lamoTRIgine 100 MG TABLET PO SCH (08:36)
--- NOTE | 2017-01-13 10:05 | PN ---
Subjective - Date and Time Seen Date: 01/13/17 Time: 07:35 Subjective Narrative: Has a cough, but says she always does chronically. Abdomen tight, more on the left side, but diuresing. Weak. Hard to walk. Objective - Review of Systems Generalized/Overall Review: Reports: Weakness EENTM: Reports: No Symptoms Reported Respiratory: Reports: Cough Cardiac: Reports: No Symptoms Reported Abdominal: Reports: No Symptoms Reported Genitourinary Symptoms: Reports: No Symptoms Reported Musculoskeletal Complaints: Reports: No Symptoms Reported Neurological: Reports: No Symptoms Reported Skin: Reports: No Symptoms Reported Endocrine: Reports: No Symptoms Reported Misc: All systems neg except as marked - Vitals Vitals: Last Vital Signs Selected Entries 01/13/17 06:00 Temperature 36.7 C Temperature Temporal Artery Source Scan Pulse Rate 78 Respiratory 18 Rate Respiratory Normal Depth Blood Pressure 118/68 Blood Pressure Supine Position O2 Sat by Pulse 98 Oximetry Oxygen Delivery Nasal Cannula Method Oxygen Flow 3 Rate - Exam Constitutional: Present: Alert, Oriented x3, Cooperative, Well developed, Obese ENT Exam: Present: normal ENT inspection, hearing grossly normal Neck: Present: normal inspection Respiratory: Present: normal breath sounds, no respiratory distress Cardiovascular/Chest: Present: regular rate, rhythm, no murmur Abdomen: Present: Normal bowel sounds, soft, nontender, nondistended, no rebound tenderness, no hepatospenomegaly, no masses, obese Extremity: Present: pedal edema Skin Exam: Present: normal color, warm/dry, no cyanosis Neurologic: Present: alert, oriented x 3 Appearance: Present: appropriate appearance, neat Eye contact: Present: cooperative, good eye contact, normal speech Cauti Physician Documentation - Urinary Catheter Management Uretheral (Dominguez) Urethral Indwelling: Yes Date of Insertion: 01/05/17 Time of Insertion: 12:31 Assessment/Plan Plan Narrative: Continue diuresis. half-way tomorrow - Problems/Diagnosis (1) Acute and chronic respiratory failure ([id number]) Problem: Acute (2) Acute exacerbation of CHF (congestive heart failure) Problem: Acute Qualifiers: Congestive heart failure type: unspecified congestive heart failure type Qualified Code(s): I50.9 - Heart failure, unspecified (3) Fatigue Problem: Acute Qualifiers: Fatigue type: unspecified Qualified Code(s): R53.83 - Other fatigue (4) Generalized weakness Problem: Acute (5) Respiratory failure Problem: Acute (6) COPD exacerbation Problem: Acute (7) Obstructive sleep apnea Problem: Chronic (8) PTSD (post-traumatic stress disorder) Problem: Chronic (9) Pickwickian syndrome Problem: Chronic
[2017-01-13] MEDS: METOCLOPRAMIDE HCL 10 MG TABLET PO SCH ×3 (10:07→17:26)
[2017-01-13] MEDS: CLOBETASOL PROPIONATE 15 APPL TUBE TP SCH ×2 (10:07→20:35)
[2017-01-13] MEDS: NYSTATIN 15 APPL BTL TP SCH ×4 (10:07→20:35)
[2017-01-13] MEDS: ENOXAPARIN SODIUM 40 MG/0.4 ML SYRG SC SCH (17:26)
[2017-01-13] MEDS: MONTELUKAST SODIUM 10 MG TABLET PO SCH (20:35)
[2017-01-14 05:45] LABS: Hematocrit 39.2 % (37.0-47.0); Hemoglobin 11.5 gm/dL (12.5-16.0); Mean Cell Volume 91.8 fl (78-100); Mean Corpuscular Hemoglobin 26.9 pg (27-31); Mean Corpuscular Hgb Conc 29.3 g/dl (32-36); Mean Platelet Volume 9.1 fl (6.0-9.5); Neutrophil # 4.2 K/mm3 (1.3-6.0); Neutrophil % 63.8 % (42-75.0); Platelet Count 193 K/mm3 (150-450); Red Blood Count 4.27 M/mm3 (4.2-5.4); Red Cell Distribution Width 16.6 % (11.5-14.0); White Blood Count 6.6 K/mm3 (4.0-10.5)
[2017-01-14 05:57] LABS: BUN/Creatinine Ratio 15.9 (9.0-21.6); Blood Urea Nitrogen 13 mg/dL (3-23); Calcium * 8.8 mg/dL (7.9-10.9); Chloride 84 mmol/L (97-106); Estimated Creat Clear 61.9; Glucose * 96 mg/dL (70-110); Potassium 3.5 mmol/L (3.4-4.6); Sodium 138 mmol/L (132-142)
[2017-01-14 06:18] LABS: Carbon Dioxide 66.7 mmol/L (24-32.6)
[2017-01-14] MEDS: OXYBUTYNIN CHLORIDE 5 MG TABLET PO SCH ×4 (07:33→21:05)
[2017-01-14] MEDS: GABAPENTIN 300 MG CAPSULE PO SCH ×3 (07:33→21:07)
[2017-01-14] MEDS: LEVOTHYROXINE SODIUM 150 MCG TABLET PO SCH (07:33)
[2017-01-14] MEDS: INSULIN LISPRO 100 UNITS/ML VIAL SC SCH ×4 (07:34→21:06)
--- NOTE | 2017-01-14 07:52 | PN ---
Subjective - Date and Time Seen Date: 01/14/17 Time: 07:47 Subjective Narrative: Has a cough, but says she always does chronically. Still diuresing. Pivot transfers. Objective - Review of Systems Generalized/Overall Review: Reports: Weakness, Malaise EENTM: Reports: No Symptoms Reported Respiratory: Reports: Cough Cardiac: Reports: No Symptoms Reported Abdominal: Reports: Abdominal Pain, Other - edematous Genitourinary Symptoms: Reports: No Symptoms Reported Musculoskeletal Complaints: Reports: Other - weak Neurological: Reports: No Symptoms Reported Skin: Reports: No Symptoms Reported Endocrine: Reports: No Symptoms Reported Misc: All systems neg except as marked - Vitals Vitals: Last Vital Signs Selected Entries 01/14/17 01/14/17 02:00 05:52 Temperature 36.3 C L Temperature Temporal Artery Source Scan Pulse Rate 77 93 Respiratory 23 H 24 H Rate Blood Pressure 111/58 Blood Pressure Supine Position O2 Sat by Pulse 96 92 Oximetry Oxygen Delivery Bi-pap Method Oxygen Flow 40 4 Rate - Abnormal Lab Findings Abnormal Lab Findings: Abnormal Lab Results 01/14/17 01/14/17 Range/Units 05:35 05:35 Hgb 11.5 L (12.5-16.0) gm/dL MCH 26.9 L (27-31) pg MCHC 29.3 L (32-36) g/dl RDW 16.6 H (11.5-14.0) % Immature Gran % (Auto) 0.60 H (0.001-0.429) % Immature Gran # (Auto) 0.04 H (0.000-0.0310) K/mm3 Lymphocytes % 17.3 L (20-51) % Monocytes % 15.4 H (0.0-9) % Lymphocytes # 1.1 L (1.5-3.5) k/mm3 Chloride 84 L (97-106) mmol/L Carbon Dioxide 66.7 H (24-32.6) mmol/L Anion Gap Less than 1.0 L (6.8-13.8) mmol/L - Exam Constitutional: Present: Alert, Oriented x3, Cooperative, Well developed, No distress, Morbidly obese ENT Exam: Present: normal ENT inspection, hearing grossly normal Neck: Present: normal inspection Respiratory: Present: lungs clear, no respiratory distress Cardiovascular/Chest: Present: regular rate, rhythm, no murmur Abdomen: Present: Normal bowel sounds, soft, nontender, nondistended, no rebound tenderness, no hepatospenomegaly, no masses, obese Extremity: Present: lower extremity edema Skin Exam: Present: normal color, warm/dry, no cyanosis Neurologic: Present: alert, oriented x 3 Appearance: Present: appropriate appearance, neat, no memory impairment Eye contact: Present: cooperative, good eye contact, normal speech Cauti Physician Documentation - Urinary Catheter Management Uretheral (Dominguez) Urethral Indwelling: Yes Date of Insertion: 01/05/17 Time of Insertion: 12:31 Assessment/Plan Plan Narrative: plan is longterm. insurance has not yet approved. continue diuresing. labs are stable. - Problems/Diagnosis (1) Acute and chronic respiratory failure ([id number]) Problem: Acute (2) Acute exacerbation of CHF (congestive heart failure) Problem: Acute Qualifiers: Congestive heart failure type: unspecified congestive heart failure type Qualified Code(s): I50.9 - Heart failure, unspecified (3) Fatigue Problem: Acute Qualifiers: Fatigue type: unspecified Qualified Code(s): R53.83 - Other fatigue (4) Generalized weakness Problem: Acute (5) Respiratory failure Problem: Acute (6) COPD exacerbation Problem: Acute (7) Obstructive sleep apnea Problem: Chronic (8) PTSD (post-traumatic stress disorder) Problem: Chronic (9) Pickwickian syndrome Problem: Chronic
[2017-01-14] MEDS: POLYETHYLENE GLYCOL 3350 119 GM BTL PO PRN (09:47)
[2017-01-14] MEDS: CLOBETASOL PROPIONATE 15 APPL TUBE TP SCH ×2 (09:47→21:07)
[2017-01-14] MEDS: FLUoxetine HCL 20 MG CAPSULE PO SCH (09:48)
[2017-01-14] MEDS: FUROSEMIDE 10 MG/ML VIAL IV SCH ×3 (09:48→16:08)
[2017-01-14] MEDS: lamoTRIgine 100 MG TABLET PO SCH (09:48)
[2017-01-14] MEDS: CYANOCOBALAMIN 1,000 MCG TABLET PO SCH (09:48)
[2017-01-14] MEDS: BISACODYL 5 MG TABLET.DR PO SCH ×3 (09:49→16:07)
[2017-01-14] MEDS: SPIRONOLACTONE 25 MG TABLET PO SCH ×2 (09:49→21:05)
[2017-01-14] MEDS: METOCLOPRAMIDE HCL 10 MG TABLET PO SCH ×3 (09:49→16:07)
[2017-01-14] MEDS: FAMOTIDINE 20 MG TABLET PO SCH (09:49)
[2017-01-14] MEDS: MULTIVITAMINS 1 CAP CAPSULE PO SCH (09:49)
[2017-01-14] MEDS: NYSTATIN 15 APPL BTL TP SCH ×4 (09:49→21:06)
[2017-01-14] MEDS: buPROPion HCL 150 MG TABLET.SA PO SCH ×2 (09:50→21:07)
[2017-01-14] MEDS: CHOLECALCIFEROL 1,000 UNIT CAPSULE PO SCH (09:50)
[2017-01-14] MEDS: INSULIN DETEMIR 100 UNITS/ML VIAL SC SCH ×2 (09:50→21:06)
[2017-01-14] MEDS: ENOXAPARIN SODIUM 40 MG/0.4 ML SYRG SC SCH (16:08)
[2017-01-14] MEDS: MONTELUKAST SODIUM 10 MG TABLET PO SCH (21:07)
[2017-01-15] MEDS: OXYBUTYNIN CHLORIDE 5 MG TABLET PO SCH ×4 (06:42→21:54)
[2017-01-15] MEDS: INSULIN LISPRO 100 UNITS/ML VIAL SC SCH ×4 (06:43→21:52)
[2017-01-15] MEDS: GABAPENTIN 300 MG CAPSULE PO SCH ×3 (06:43→21:55)
[2017-01-15] MEDS: LEVOTHYROXINE SODIUM 150 MCG TABLET PO SCH (06:43)
[2017-01-15] MEDS: SPIRONOLACTONE 25 MG TABLET PO SCH ×2 (09:41→21:54)
[2017-01-15] MEDS: BISACODYL 5 MG TABLET.DR PO SCH ×3 (09:41→16:33)
[2017-01-15] MEDS: buPROPion HCL 150 MG TABLET.SA PO SCH ×2 (09:42→21:56)
[2017-01-15] MEDS: MULTIVITAMINS 1 CAP CAPSULE PO SCH (09:42)
[2017-01-15] MEDS: CHOLECALCIFEROL 1,000 UNIT CAPSULE PO SCH (09:42)
[2017-01-15] MEDS: lamoTRIgine 100 MG TABLET PO SCH (09:43)
[2017-01-15] MEDS: NYSTATIN 15 APPL BTL TP SCH ×4 (09:43→21:58)
[2017-01-15] MEDS: FAMOTIDINE 20 MG TABLET PO SCH (09:43)
[2017-01-15] MEDS: METOCLOPRAMIDE HCL 10 MG TABLET PO SCH ×3 (09:44→16:33)
[2017-01-15] MEDS: FLUoxetine HCL 20 MG CAPSULE PO SCH (09:44)
[2017-01-15] MEDS: CYANOCOBALAMIN 1,000 MCG TABLET PO SCH (09:44)
[2017-01-15] MEDS: FUROSEMIDE 10 MG/ML VIAL IV SCH ×3 (09:45→16:33)
[2017-01-15] MEDS: INSULIN DETEMIR 100 UNITS/ML VIAL SC SCH ×2 (09:45→21:53)
[2017-01-15] MEDS: CLOBETASOL PROPIONATE 15 APPL TUBE TP SCH ×2 (10:32→21:56)
--- NOTE | 2017-01-15 10:50 | PN ---
Subjective - Date and Time Seen Date: 01/15/17 Time: 10:45 Subjective Narrative: Main complaint is right shoulder pain. RTdoing incentive spirometry with her. awaiting NH placement Objective - Review of Systems Generalized/Overall Review: Reports: Weakness. Denies: Chills, Fever EENTM: Reports: No Symptoms Reported Respiratory: Reports: Shortness of Breath, Wheezing - ocasional. Denies: Cough Cardiac: Reports: Edema. Denies: Chest Pain, Palpitations Abdominal: Denies: Nausea, Vomiting Genitourinary Symptoms: Denies: Urgency, Frequency - Vitals Vitals: Last Vital Signs Temp 36.6 C 01/15/17 06:42 Pulse 75 01/15/17 09:45 Resp 24 H 01/15/17 06:42 BP 128/88 01/15/17 09:45 Pulse Ox 96 01/15/17 06:42 - Exam Constitutional: Present: Alert, Oriented x3, Cooperative, Morbidly obese ENT Exam: Present: hearing grossly normal Neck: Present: supple Breasts: Present: Exam deferred Respiratory: Present: decreased breath sounds, wheezing, No rales Cardiovascular/Chest: Present: regular rate, rhythm, no JVD, no murmur Abdomen: Present: Normal bowel sounds, soft, nontender, obese Extremity: Present: no calf tenderness, pedal edema Cauti Physician Documentation - Urinary Catheter Management Uretheral (Dominguez) Urethral Indwelling: Yes Date of Insertion: 01/05/17 Time of Insertion: 12:31 Assessment/Plan - Problems/Diagnosis (1) Acute and chronic respiratory failure ([id number]) Problem: Resolved Qualifiers: Respiratory failure complication: hypoxia and hypercapnia Qualified Code(s) : J96.21 - Acute and chronic respiratory failure with hypoxia; J96.22 - Acute and chronic respiratory failure with hypercapnia Narrative: continue with breathing treatments- inahlers/nebs/incentive spirometry (2) Acute exacerbation of CHF (congestive heart failure) Problem: Chronic Qualifiers: Congestive heart failure type: unspecified congestive heart failure type Qualified Code(s): I50.9 - Heart failure, unspecified Narrative: acute on chronic. continue with IV diuresis (3) Generalized weakness Problem: Acute (4) Chronic respiratory failure with hypercapnia Problem: Chronic (5) Morbid obesity Problem: Chronic (6) Obstructive sleep apnea Problem: Chronic Narrative: continue with BiPAP (7) PTSD (post-traumatic stress disorder) Problem: Chronic (8) Pickwickian syndrome Problem: Chronic Narrative: continue with BipAP (9) Shoulder pain, right Problem: Acute Narrative: will get Xray.
[2017-01-15] MEDS: ENOXAPARIN SODIUM 40 MG/0.4 ML SYRG SC SCH (16:32)
[2017-01-15] MEDS: MONTELUKAST SODIUM 10 MG TABLET PO SCH (21:55)
[2017-01-16 06:11] LABS: Hematocrit 38.9 % (37.0-47.0); Hemoglobin 11.4 gm/dL (12.5-16.0); Mean Cell Volume 92.8 fl (78-100); Mean Corpuscular Hemoglobin 27.2 pg (27-31); Mean Corpuscular Hgb Conc 29.3 g/dl (32-36); Mean Platelet Volume 8.7 fl (6.0-9.5); Neutrophil % 64.8 % (42-75.0); Platelet Count 178 K/mm3 (150-450); Red Blood Count 4.19 M/mm3 (4.2-5.4); Red Cell Distribution Width 16.5 % (11.5-14.0); White Blood Count 6.2 K/mm3 (4.0-10.5)
[2017-01-16 06:18] LABS: BUN/Creatinine Ratio 14.9 (9.0-21.6); Blood Urea Nitrogen 11 mg/dL (3-23); Calcium * 8.8 mg/dL (7.9-10.9); Chloride 83 mmol/L (97-106); Estimated Creat Clear 68.5; Glucose * 89 mg/dL (70-110); Potassium 3.3 mmol/L (3.4-4.6); Sodium 137 mmol/L (132-142)
[2017-01-16] MEDS: INSULIN LISPRO 100 UNITS/ML VIAL SC SCH ×4 (07:03→22:30)
[2017-01-16] MEDS: OXYBUTYNIN CHLORIDE 5 MG TABLET PO SCH ×4 (07:04→22:29)
[2017-01-16] MEDS: GABAPENTIN 300 MG CAPSULE PO SCH ×3 (07:04→22:10)
[2017-01-16] MEDS: LEVOTHYROXINE SODIUM 150 MCG TABLET PO SCH (07:04)
[2017-01-16 07:19] LABS: Carbon Dioxide 60.6 mmol/L (24-32.6)
[2017-01-16] MEDS ORDERED: POTASSIUM CHLORIDE 10 MEQ TABLET.SA PO ONE (08:39)
[2017-01-16] MEDS: SPIRONOLACTONE 25 MG TABLET PO SCH ×2 (08:57→22:10)
[2017-01-16] MEDS: lamoTRIgine 100 MG TABLET PO SCH (08:58)
[2017-01-16] MEDS: INSULIN DETEMIR 100 UNITS/ML VIAL SC SCH ×2 (08:58→22:08)
[2017-01-16] MEDS: BISACODYL 5 MG TABLET.DR PO SCH ×3 (08:58→22:23)
[2017-01-16] MEDS: FUROSEMIDE 10 MG/ML VIAL IV SCH ×3 (08:58→22:25)
[2017-01-16] MEDS: FLUoxetine HCL 20 MG CAPSULE PO SCH (08:59)
[2017-01-16] MEDS: FAMOTIDINE 20 MG TABLET PO SCH (08:59)
[2017-01-16] MEDS: NYSTATIN 15 APPL BTL TP SCH ×4 (08:59→22:29)
[2017-01-16] MEDS: MULTIVITAMINS 1 CAP CAPSULE PO SCH (08:59)
[2017-01-16] MEDS: METOCLOPRAMIDE HCL 10 MG TABLET PO SCH ×3 (08:59→22:27)
[2017-01-16] MEDS: CYANOCOBALAMIN 1,000 MCG TABLET PO SCH (09:00)
[2017-01-16] MEDS: CLOBETASOL PROPIONATE 15 APPL TUBE TP SCH ×2 (09:00→22:12)
[2017-01-16] MEDS: CHOLECALCIFEROL 1,000 UNIT CAPSULE PO SCH (09:00)
[2017-01-16] MEDS: buPROPion HCL 150 MG TABLET.SA PO SCH ×2 (09:00→22:13)
--- NOTE | 2017-01-16 09:08 | PN ---
Subjective - Date and Time Seen Date: 01/16/17 Time: 09:04 Subjective Narrative: She wants a chapstick. 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 Objective - Review of Systems Generalized/Overall Review: Reports: Weakness. Denies: Chills, Fever EENTM: Reports: No Symptoms Reported Respiratory: Reports: Shortness of Breath, Orthopnea Cardiac: Reports: Edema. Denies: Chest Pain, Palpitations Abdominal: Denies: Nausea, Vomiting Genitourinary Symptoms: Denies: Frequency, Hesitancy Musculoskeletal Complaints: Reports: Joint Pain - Vitals Vitals: Last Vital Signs Temp 36.8 C 01/16/17 06:55 Pulse 74 01/16/17 06:55 Resp 20 01/16/17 06:55 BP 126/82 01/16/17 06:55 Pulse Ox 100 01/16/17 06:55 - Abnormal Lab Findings Abnormal Lab Findings: Abnormal Lab Results 01/16/17 01/16/17 Range/Units 05:30 05:30 RBC 4.19 L (4.2-5.4) M/mm3 Hgb 11.4 L (12.5-16.0) gm/dL MCHC 29.3 L (32-36) g/dl RDW 16.5 H (11.5-14.0) % Immature Gran % (Auto) 0.50 H (0.001-0.429) % Lymphocytes % 15.2 L (20-51) % Monocytes % 16.2 H (0.0-9) % Lymphocytes # 1.0 L (1.5-3.5) k/mm3 Potassium 3.3 L (3.4-4.6) mmol/L Chloride 83 L (97-106) mmol/L Carbon Dioxide 60.6 H (24-32.6) mmol/L Anion Gap Less than 1.0 L (6.8-13.8) mmol/L - Exam Constitutional: Present: Alert, Oriented x3, Cooperative, Morbidly obese ENT Exam: Present: hearing grossly normal Neck: Present: supple Breasts: Present: Exam deferred Respiratory: Present: decreased breath sounds, No rales, No wheezing Cardiovascular/Chest: Present: regular rate, rhythm, no JVD, no murmur Abdomen: Present: Normal bowel sounds, soft, nontender, obese Extremity: Present: no calf tenderness, lower extremity edema Cauti Physician Documentation - Urinary Catheter Management Uretheral (Dominguez) Urethral Indwelling: Yes Date of Insertion: 01/05/17 Time of Insertion: 12:31 Assessment/Plan - Problems/Diagnosis (1) Acute and chronic respiratory failure ([id number]) Problem: Resolved Qualifiers: Respiratory failure complication: hypoxia and hypercapnia Qualified Code(s) : J96.21 - Acute and chronic respiratory failure with hypoxia; J96.22 - Acute and chronic respiratory failure with hypercapnia Narrative: continue with present management. HCO3 has improved (2) Acute exacerbation of CHF (congestive heart failure) Problem: Chronic Qualifiers: Congestive heart failure type: unspecified congestive heart failure type Qualified Code(s): I50.9 - Heart failure, unspecified Narrative: continue with present management (3) Generalized weakness Problem: Acute (4) Chronic respiratory failure with hypercapnia Problem: Chronic (5) Morbid obesity Problem: Chronic (6) Obstructive sleep apnea Problem: Chronic (7) PTSD (post-traumatic stress disorder) Problem: Chronic (8) Pickwickian syndrome Problem: Chronic (9) Shoulder pain, right Problem: Acute Narrative: has Acetominophen for pain PRN.
[2017-01-16] MEDS: MONTELUKAST SODIUM 10 MG TABLET PO SCH (22:12)
[2017-01-16] MEDS: ENOXAPARIN SODIUM 40 MG/0.4 ML SYRG SC SCH (22:26)
[2017-01-17] MEDS: INSULIN LISPRO 100 UNITS/ML VIAL SC SCH ×4 (06:58→20:24)
[2017-01-17] MEDS: OXYBUTYNIN CHLORIDE 5 MG TABLET PO SCH ×4 (06:59→20:22)
[2017-01-17] MEDS: LEVOTHYROXINE SODIUM 150 MCG TABLET PO SCH (06:59)
[2017-01-17] MEDS: GABAPENTIN 300 MG CAPSULE PO SCH ×3 (06:59→20:21)
--- NOTE | 2017-01-17 07:43 | PN ---
Subjective - Date and Time Seen Date: 01/17/17 Time: 07:37 Subjective Narrative: Has a cough, but says she always does chronically. Still diuresing. Ambulated 3 steps on Tuesday with the help of two people. looking for a residential. Objective - Review of Systems Generalized/Overall Review: Reports: Weakness EENTM: Reports: No Symptoms Reported Respiratory: Reports: No Symptoms Reported Cardiac: Reports: No Symptoms Reported Abdominal: Reports: No Symptoms Reported Genitourinary Symptoms: Reports: No Symptoms Reported Musculoskeletal Complaints: Reports: No Symptoms Reported Neurological: Reports: No Symptoms Reported Skin: Reports: No Symptoms Reported Endocrine: Reports: No Symptoms Reported - Vitals Vitals: Last Vital Signs Selected Entries 01/17/17 06:53 Temperature 36.7 C Temperature Oral Source Pulse Rate 78 Respiratory 20 Rate Blood Pressure 146/74 Blood Pressure Supine Position O2 Sat by Pulse 94 Oximetry Oxygen Delivery Room Air Method Oxygen Flow 0 Rate - Abnormal Lab Findings Abnormal Lab Findings: Potassium 3.3. Now in positive fluid balance. - Exam Constitutional: Present: Alert, Oriented x3, Cooperative, Well developed, No distress, Morbidly obese ENT Exam: Present: normal ENT inspection, hearing grossly normal Neck: Present: normal inspection Respiratory: Present: normal breath sounds, no respiratory distress, other - cough chronic Cardiovascular/Chest: Present: regular rate, rhythm, edema Abdomen: Present: Normal bowel sounds, soft, nontender, nondistended, no rebound tenderness, no hepatospenomegaly, no masses, obese Skin Exam: Present: warm/dry Neurologic: Present: alert, oriented x 3 Appearance: Present: appropriate appearance, neat Eye contact: Present: cooperative, good eye contact, normal speech Cauti Physician Documentation - Urinary Catheter Management Uretheral (Dominguez) Urethral Indwelling: Yes Date of Insertion: 01/05/17 Time of Insertion: 12:31 Assessment/Plan Plan Narrative: Look for residential. Monitor labs. Increase Lasix. Increase aldactone. I hope the increase in aldactone helps the potassium. If not I will add potassium. - Problems/Diagnosis (1) Acute and chronic respiratory failure ([id number]) Problem: Resolved Qualifiers: Respiratory failure complication: hypoxia and hypercapnia Qualified Code(s) : J96.21 - Acute and chronic respiratory failure with hypoxia; J96.22 - Acute and chronic respiratory failure with hypercapnia (2) Acute exacerbation of CHF (congestive heart failure) Problem: Chronic Qualifiers: Congestive heart failure type: unspecified congestive heart failure type Qualified Code(s): I50.9 - Heart failure, unspecified (3) Fatigue Problem: Acute Qualifiers: Fatigue type: unspecified Qualified Code(s): R53.83 - Other fatigue (4) Generalized weakness Problem: Acute (5) Respiratory failure Problem: Acute (6) COPD exacerbation Problem: Acute (7) Obstructive sleep apnea Problem: Chronic (8) PTSD (post-traumatic stress disorder) Problem: Chronic (9) Pickwickian syndrome Problem: Chronic
[2017-01-17] MEDS: SPIRONOLACTONE 25 MG TABLET PO SCH ×3 (08:26→16:57)
[2017-01-17] MEDS: lamoTRIgine 100 MG TABLET PO SCH (08:27)
[2017-01-17] MEDS: BISACODYL 5 MG TABLET.DR PO SCH ×3 (08:28→16:58)
[2017-01-17] MEDS: FLUoxetine HCL 20 MG CAPSULE PO SCH (08:28)
[2017-01-17] MEDS: NYSTATIN 15 APPL BTL TP SCH ×4 (08:28→20:22)
[2017-01-17] MEDS: MULTIVITAMINS 1 CAP CAPSULE PO SCH (08:29)
[2017-01-17] MEDS: CHOLECALCIFEROL 1,000 UNIT CAPSULE PO SCH (08:29)
[2017-01-17] MEDS: FAMOTIDINE 20 MG TABLET PO SCH (08:30)
[2017-01-17] MEDS: METOCLOPRAMIDE HCL 10 MG TABLET PO SCH ×3 (08:30→16:58)
[2017-01-17] MEDS: buPROPion HCL 150 MG TABLET.SA PO SCH ×2 (08:31→20:23)
[2017-01-17] MEDS: CYANOCOBALAMIN 1,000 MCG TABLET PO SCH (08:31)
[2017-01-17] MEDS: CLOBETASOL PROPIONATE 15 APPL TUBE TP SCH ×2 (08:31→20:23)
[2017-01-17] MEDS: INSULIN DETEMIR 100 UNITS/ML VIAL SC SCH ×2 (08:33→20:23)
[2017-01-17] MEDS: FUROSEMIDE 10 MG/ML VIAL IV SCH ×2 (08:33→12:42)
[2017-01-17] MEDS: ENOXAPARIN SODIUM 40 MG/0.4 ML SYRG SC SCH (16:59)
[2017-01-17] MEDS ORDERED: FUROSEMIDE 100 MG, FUROSEMIDE 20 MG IV SCH ×2 (17:00)
[2017-01-17] MEDS: MONTELUKAST SODIUM 10 MG TABLET PO SCH (20:23)
[2017-01-17] MEDS: ACETAMINOPHEN 325 MG TABLET PO PRN (21:03)
[2017-01-18] MEDS: INSULIN LISPRO 100 UNITS/ML VIAL SC SCH ×4 (07:14→20:15)
[2017-01-18] MEDS: GABAPENTIN 300 MG CAPSULE PO SCH ×3 (07:14→20:17)
[2017-01-18] MEDS: LEVOTHYROXINE SODIUM 150 MCG TABLET PO SCH (07:15)
[2017-01-18] MEDS: OXYBUTYNIN CHLORIDE 5 MG TABLET PO SCH ×4 (07:15→20:16)
--- NOTE | 2017-01-18 07:54 | PN ---
Subjective - Date and Time Seen Date: 01/18/17 Time: 07:47 Subjective Narrative: Has a cough, but says she always does chronically. Diuresing less. Standing and pivoting. Objective - Review of Systems Generalized/Overall Review: Reports: Weakness, Malaise EENTM: Reports: No Symptoms Reported Respiratory: Reports: Cough Cardiac: Reports: No Symptoms Reported Abdominal: Reports: No Symptoms Reported Genitourinary Symptoms: Reports: No Symptoms Reported Musculoskeletal Complaints: Reports: No Symptoms Reported Neurological: Reports: No Symptoms Reported Skin: Reports: No Symptoms Reported Endocrine: Reports: No Symptoms Reported Misc: All systems neg except as marked - Vitals Vitals: Last Vital Signs Selected Entries 01/18/17 06:42 Temperature 36.6 C Temperature Oral Source Pulse Rate 74 Respiratory 23 H Rate Blood Pressure 116/77 Blood Pressure Supine Position O2 Sat by Pulse 98 Oximetry Oxygen Delivery Nasal Cannula Method Oxygen Flow 4 Rate - Exam Constitutional: Present: Alert, Oriented x3, Cooperative, Well developed, No distress, Morbidly obese ENT Exam: Present: normal ENT inspection, hard of hearing Neck: Present: normal inspection Respiratory: Present: no respiratory distress, rhonchi Cardiovascular/Chest: Present: regular rate, rhythm, edema Abdomen: Present: Normal bowel sounds, soft, nontender, nondistended, no rebound tenderness, no hepatospenomegaly, no masses, obese Skin Exam: Present: warm/dry, no cyanosis Neurologic: Present: alert Appearance: Present: appropriate appearance, neat Eye contact: Present: cooperative, good eye contact, normal speech Cauti Physician Documentation - Urinary Catheter Management Uretheral (Dominguez) Urethral Indwelling: Yes Date of Insertion: 01/05/17 Time of Insertion: 12:31 Date of Removal: 01/11/17 Time of Removal: 11:00 Assessment/Plan Plan Narrative: Will back off lasix dose and spironolactone dose and add hydrochlorothiazide dose to see if we can improve diuresis again. Still looking for senior living placement. Severely Pickwickian. We may have reached maximum medical benefit. Tends to dislike using bipap. - Problems/Diagnosis (1) Acute and chronic respiratory failure ([id number]) Problem: Resolved Qualifiers: Respiratory failure complication: hypoxia and hypercapnia Qualified Code(s) : J96.21 - Acute and chronic respiratory failure with hypoxia; J96.22 - Acute and chronic respiratory failure with hypercapnia (2) Acute exacerbation of CHF (congestive heart failure) Problem: Chronic Qualifiers: Congestive heart failure type: unspecified congestive heart failure type Qualified Code(s): I50.9 - Heart failure, unspecified (3) Fatigue Problem: Acute Qualifiers: Fatigue type: unspecified Qualified Code(s): R53.83 - Other fatigue (4) Generalized weakness Problem: Acute (5) Respiratory failure Problem: Acute (6) COPD exacerbation Problem: Acute (7) Obstructive sleep apnea Problem: Chronic (8) PTSD (post-traumatic stress disorder) Problem: Chronic (9) Pickwickian syndrome Problem: Chronic
[2017-01-18] MEDS: BISACODYL 5 MG TABLET.DR PO SCH ×3 (09:05→17:24)
[2017-01-18] MEDS: lamoTRIgine 100 MG TABLET PO SCH (09:05)
[2017-01-18] MEDS: NYSTATIN 15 APPL BTL TP SCH ×4 (09:05→20:17)
[2017-01-18] MEDS: MULTIVITAMINS 1 CAP CAPSULE PO SCH (09:05)
[2017-01-18] MEDS: SPIRONOLACTONE 25 MG TABLET PO SCH ×2 (09:05→20:17)
[2017-01-18] MEDS: HYDROCHLOROTHIAZIDE 25 MG TABLET PO SCH ×2 (09:05→20:17)
[2017-01-18] MEDS: buPROPion HCL 150 MG TABLET.SA PO SCH ×2 (09:06→20:18)
[2017-01-18] MEDS: FAMOTIDINE 20 MG TABLET PO SCH (09:06)
[2017-01-18] MEDS: FLUoxetine HCL 20 MG CAPSULE PO SCH (09:06)
[2017-01-18] MEDS: CHOLECALCIFEROL 1,000 UNIT CAPSULE PO SCH (09:06)
[2017-01-18] MEDS: CYANOCOBALAMIN 1,000 MCG TABLET PO SCH (09:06)
[2017-01-18] MEDS: METOCLOPRAMIDE HCL 10 MG TABLET PO SCH ×3 (09:07→17:24)
[2017-01-18] MEDS: CLOBETASOL PROPIONATE 15 APPL TUBE TP SCH ×2 (09:07→20:18)
[2017-01-18] MEDS: POLYETHYLENE GLYCOL 3350 119 GM BTL PO PRN (09:09)
[2017-01-18] MEDS: FUROSEMIDE 10 MG/ML VIAL IV SCH ×2 (10:17→20:16)
[2017-01-18] MEDS: ACETAMINOPHEN 325 MG TABLET PO PRN (10:30)
[2017-01-18] MEDS: INSULIN DETEMIR 100 UNITS/ML VIAL SC SCH ×2 (10:31→20:16)
[2017-01-18] MEDS: ENOXAPARIN SODIUM 40 MG/0.4 ML SYRG SC SCH (17:25)
[2017-01-18] MEDS: MONTELUKAST SODIUM 10 MG TABLET PO SCH (20:18)
[2017-01-19] MEDS: INSULIN LISPRO 100 UNITS/ML VIAL SC SCH ×4 (06:40→20:04)
[2017-01-19] MEDS: GABAPENTIN 300 MG CAPSULE PO SCH ×3 (06:46→20:02)
[2017-01-19] MEDS: LEVOTHYROXINE SODIUM 150 MCG TABLET PO SCH (06:46)
[2017-01-19] MEDS: OXYBUTYNIN CHLORIDE 5 MG TABLET PO SCH ×4 (06:46→20:03)
[2017-01-19] MEDS: POLYETHYLENE GLYCOL 3350 119 GM BTL PO PRN (06:46)
[2017-01-19] MEDS: INSULIN DETEMIR 100 UNITS/ML VIAL SC SCH ×2 (09:55→20:04)
[2017-01-19] MEDS: CLOBETASOL PROPIONATE 15 APPL TUBE TP SCH ×2 (09:56→20:02)
[2017-01-19] MEDS: METOCLOPRAMIDE HCL 10 MG TABLET PO SCH ×3 (09:56→17:13)
[2017-01-19] MEDS: MULTIVITAMINS 1 CAP CAPSULE PO SCH (09:57)
[2017-01-19] MEDS: HYDROCHLOROTHIAZIDE 25 MG TABLET PO SCH ×2 (09:57→20:02)
[2017-01-19] MEDS: FLUoxetine HCL 20 MG CAPSULE PO SCH (09:57)
[2017-01-19] MEDS: CYANOCOBALAMIN 1,000 MCG TABLET PO SCH (09:57)
[2017-01-19] MEDS: BISACODYL 5 MG TABLET.DR PO SCH ×3 (09:57→17:09)
[2017-01-19] MEDS: SPIRONOLACTONE 25 MG TABLET PO SCH ×2 (09:57→20:03)
[2017-01-19] MEDS: buPROPion HCL 150 MG TABLET.SA PO SCH ×2 (09:58→20:03)
[2017-01-19] MEDS: FAMOTIDINE 20 MG TABLET PO SCH (09:58)
[2017-01-19] MEDS: FUROSEMIDE 80 MG TABLET PO SCH ×2 (09:58→17:09)
[2017-01-19] MEDS: CHOLECALCIFEROL 1,000 UNIT CAPSULE PO SCH (09:58)
[2017-01-19] MEDS: lamoTRIgine 100 MG TABLET PO SCH (09:58)
[2017-01-19] MEDS: NYSTATIN 15 APPL BTL TP SCH ×4 (09:58→20:03)
[2017-01-19] MEDS: FUROSEMIDE 10 MG/ML VIAL IV SCH (10:25)
[2017-01-19] MEDS: ENOXAPARIN SODIUM 40 MG/0.4 ML SYRG SC SCH (17:09)
[2017-01-19] MEDS: MONTELUKAST SODIUM 10 MG TABLET PO SCH (20:03)
--- NOTE | 2017-01-19 23:57 | PN ---
Subjective - Date and Time Seen Date: 01/19/17 Time: 12:15 Subjective Narrative: No concerns today. No fever, chills, N/v. Objective - Vitals Vitals: Last Vital Signs Temp 35.9 C L 01/19/17 22:40 Pulse 81 01/19/17 22:40 Resp 20 01/19/17 22:40 BP 141/100 01/19/17 22:40 Pulse Ox 95 01/19/17 22:40 - Exam Constitutional: Present: Alert, Oriented x3, Cooperative Respiratory: Present: decreased breath sounds - bilateral base Cardiovascular/Chest: Present: regular rate, rhythm, no murmur Abdomen: Present: Normal bowel sounds, soft, nontender, nondistended Cauti Physician Documentation - Urinary Catheter Management Uretheral (Dominguez) Urethral Indwelling: Yes Date of Insertion: 01/05/17 Time of Insertion: 12:31 Date of Removal: 01/11/17 Time of Removal: 11:00 Assessment/Plan Plan Narrative: Improving, continue diuresis. No acute changes today. If stable on oral medications may discharge in the next 1-2 days. - Problems/Diagnosis (1) Acute exacerbation of CHF (congestive heart failure) Problem: Chronic Qualifiers: Congestive heart failure type: unspecified congestive heart failure type Qualified Code(s): I50.9 - Heart failure, unspecified (2) Acute and chronic respiratory failure ([id number]) Problem: Resolved Qualifiers: Respiratory failure complication: hypoxia and hypercapnia Qualified Code(s) : J96.21 - Acute and chronic respiratory failure with hypoxia; J96.22 - Acute and chronic respiratory failure with hypercapnia
[2017-01-20] MEDS: INSULIN LISPRO 100 UNITS/ML VIAL SC SCH (07:02)
[2017-01-20] MEDS: OXYBUTYNIN CHLORIDE 5 MG TABLET PO SCH (07:03)
[2017-01-20] MEDS: GABAPENTIN 300 MG CAPSULE PO SCH (07:03)
[2017-01-20] MEDS: LEVOTHYROXINE SODIUM 150 MCG TABLET PO SCH (07:03)
[2017-01-20 08:03] VITALS: BP 147/74
[2017-01-20] MEDS: POLYETHYLENE GLYCOL 3350 119 GM BTL PO PRN (08:46)
[2017-01-20] MEDS: METOCLOPRAMIDE HCL 10 MG TABLET PO SCH (08:47)
[2017-01-20] MEDS: buPROPion HCL 150 MG TABLET.SA PO SCH (08:48)
[2017-01-20] MEDS: HYDROCHLOROTHIAZIDE 25 MG TABLET PO SCH (08:48)
[2017-01-20] MEDS: FLUoxetine HCL 20 MG CAPSULE PO SCH (08:48)
[2017-01-20] MEDS: CHOLECALCIFEROL 1,000 UNIT CAPSULE PO SCH (08:48)
[2017-01-20] MEDS: MULTIVITAMINS 1 CAP CAPSULE PO SCH (08:48)
[2017-01-20] MEDS: lamoTRIgine 100 MG TABLET PO SCH (08:48)
[2017-01-20] MEDS: BISACODYL 5 MG TABLET.DR PO SCH (08:48)
[2017-01-20] MEDS: CLOBETASOL PROPIONATE 15 APPL TUBE TP SCH (08:49)
[2017-01-20] MEDS: NYSTATIN 15 APPL BTL TP SCH (08:49)
[2017-01-20] MEDS: FAMOTIDINE 20 MG TABLET PO SCH (08:49)
[2017-01-20] MEDS: FUROSEMIDE 80 MG TABLET PO SCH (08:49)
[2017-01-20] MEDS: CYANOCOBALAMIN 1,000 MCG TABLET PO SCH (08:49)
[2017-01-20] MEDS: SPIRONOLACTONE 25 MG TABLET PO SCH (08:50)
[2017-01-20] MEDS: INSULIN DETEMIR 100 UNITS/ML VIAL SC SCH (08:57)
--- NOTE | 2017-02-15 11:58 | DS ---
(1) Acute and chronic respiratory failure ([id number]) Problem: Resolved Qualifiers: Respiratory failure complication: hypoxia and hypercapnia Qualified Code(s) : J96.21 - Acute and chronic respiratory failure with hypoxia; J96.22 - Acute and chronic respiratory failure with hypercapnia (2) Acute exacerbation of CHF (congestive heart failure) Problem: Chronic Qualifiers: Congestive heart failure type: unspecified congestive heart failure type Qualified Code(s): I50.9 - Heart failure, unspecified (3) Fatigue Problem: Chronic Qualifiers: Fatigue type: unspecified Qualified Code(s): R53.83 - Other fatigue (4) Generalized weakness Problem: Acute (5) Respiratory failure Problem: Chronic (6) COPD exacerbation Problem: Acute (7) Obstructive sleep apnea Problem: Chronic (8) PTSD (post-traumatic stress disorder) Problem: Chronic (9) Pickwickian syndrome Problem: Chronic Description of Stay: Stay was complicate.In spite of vigorous dirusis, respiratory failure persisted. Patient resisted attempts to ambutate and positive pressure assist devices. At the end of her hospital stay she could barely stand and pivot. Her prognosis is extremely extremely poor. She may in fact even qualify for hospice care. Procedures Performed: none Discharge Disposition: Other HealthCare facility Disposition: [facility] not listed Condition: Fair Discharge Activity: Activity as tolerated Discharge Diet: Low salt Discharge Level of Care:: SNF - [facility] Therapy: Physicial Therapy, Occupation Therapy Problem Oriented Discharge Instructions to Patient/Family: Heart Failure, Easy- to-Read Additional Patient Instructions (free text): Pt is going to [facility] in [place], [place] to reside and therapies. [facility] phone number is [phone]. Fax number is [phone]. Pt's son Serjio's phone number is [phone]. Finger Stick Blood Sugar before meals and at bedtime. O2 at 4L/NC continuous when not on BIPAP. BIPAP settings 10/4 FiO2 40%. BIPAP to be worn at HS. CBC BMP in 4 days Patient has CHF but the Echo here could not get good pictures. Her pCO2 is always about 90. Weigh daily. Prescriptions (Any new or edited meds): Insulin Lispro [Humalog] See Protocol SC VIDYA #1 vial Complete Home Medications List: Complete Home Medication List: Metoclopramide HCl [Reglan] 10 mg PO TID 01/24/14 lamoTRIgine [Lamictal] 150 mg PO DAILY 01/24/14 Cholecalciferol (Vitamin D3) [Vitamin D3] 2,000 unit PO DAILY 07/08/14 Cyanocobalamin [Vitamin B-12] 500 mcg PO DAILY 07/08/14 Multivitamin [Multi-Vitamin Daily] 1 each PO DAILY 07/08/14 Nystatin [Nystop] 1 appl TP QID 07/08/14 Polyethylene Glycol 3350 [Miralax] 17 gm PO DAILY PRN 07/08/14 buPROPion HCL [Wellbutrin Sr, Zyban] 150 mg PO BID 07/10/14 Clobetasol Propionate [Temovate Emollient 0.05%] 1 appl TP BID #1 tube 07/18/14 Levothyroxine Sodium [Synthroid] 150 mcg PO DAILY@0700 #30 tablet 07/18/14 Montelukast Sodium [Singulair] 10 mg PO DAILY 01/05/17 Ranitidine HCl [Zantac] 300 mg PO DAILY 01/05/17 Acetaminophen [Tylenol] 650 mg PO QID PRN tablet 01/20/17 Albuterol Sulfate/Ipratropium [Duoneb 2.5-0.5MG/3ML Soln] 3 ml IH QID PRN nebu 01/20/17 Bisacodyl [Dulcolax] 5 mg PO DAILY PRN tablet. 01/20/17 Furosemide [Lasix] 80 mg PO BID@0900,1700 tablet 01/20/17 Hydrochlorothiazide [Hydrodiuril] 25 mg PO BID tablet 01/20/17 Insulin Detemir [Levemir] 12 units SC Q12H vial 01/20/17 Insulin Lispro [Humalog] See Protocol SC ACHSINS #1 vial 01/20/17 Oxybutynin Chloride [Ditropan] 5 mg PO 0700,1300,1700,2100 tablet 01/20/17 Spironolactone [Aldactone] 25 mg PO BID tablet 01/20/17 Amb Orders for Discharge: Basic Metabolic Panel Time Frame: 4 Days, Location: Determined By Patient CBC Time Frame: 4 Days, Location: Determined By Patient
== END 2017-01-20 09:23 | DRG 189 ==
LOC: ER 10:05 → MS 12:15 → OBSVTOIN 01-06 10:24 → MS 01-08 10:32
PROVIDERS: ADMIT Nurse Practitioner Critical Care Medicine; ATTEND Allergy & Immunology
PROC: 0T9B70Z Drainage of Bladder with Drainage Device, Via Natural or Artificial Opening (ICD-10-PCS; principal; 2017-01-05)
PROC: 4A033R1 Measurement of Arterial Saturation, Peripheral, Percutaneous Approach (ICD-10-PCS; principal; 2017-01-05)
DX: J96.02 Acute respiratory failure with hypercapnia (principal); I50.33 Acute on chronic diastolic (congestive) heart failure; E66.2 Morbid (severe) obesity with alveolar hypoventilation; Z68.44 Body mass index [BMI] 60.0-69.9, adult; J96.01 Acute respiratory failure with hypoxia; R53.1 Weakness; E78.5 Hyperlipidemia, unspecified; I10 Essential (primary) hypertension; E03.9 Hypothyroidism, unspecified; Z71.3 Dietary counseling and surveillance; Z99.81 Dependence on supplemental oxygen; Z23 Encounter for immunization
CPT/HCPCS: 36415; 36600; 51702; 71010; 73020; 73502; 73560; 73562; 80048; 80053; 81001; 82803; 83880; 84145; 84443; 84484; 85025; 85652; 86140; 87086; 90686; 93005; 94640; 94660; 94760; 96374; 97110; 97116; 97161; 97165; 97530; 99284; G0008; G0378; G8978; G8979; G8980; G8987; G8988; G8989